=== PATIENT | female | born 1975 | race Caucasian/White ===

== ENCOUNTER 2024-02-02 16:34 | Inpatient (IN) | payer SELFPAY ==
--- NOTE | 2024-02-02 18:05 | RAD REPORT ---
EXAMINATION: US Abdomen Exam Limited CLINICAL HISTORY: [facility] MAIN Y ABD PAIN Bed Name: [id number] COMPARISON: None. TECHNIQUE: Limited upper abdominal grayscale and color flow sonographic images. FINDINGS: Gallbladder: Small volume layering gallbladder sludge near the neck. No significant wall thickening. Reportedly positive sonographic Raman's sign. No echogenic calculi. No pericholecystic fluid. Bile ducts: No intrahepatic or extrahepatic biliary dilatation. Common bile duct measures mm. Liver: Visualized portions of the liver demonstrate normal echogenicity with no suspicious findings. Fluid: No ascites. IMPRESSION: Gallbladder sludge and reported positive sonographic Raman's sign. Please correlate clinically for e vidence of acute cholecystitis.
[2024-02-02 19:23] LABS: Absolute Basophils 0.1 K/uL (0-0.5); Absolute Eosinophils 0.1 K/uL (0-0.5); Absolute Lymphocytes (CBC) 1.5 K/uL (0.7-4.9); Absolute Monocytes 0.4 K/uL (0.1-1.3); Absolute Neutrophil 8.8 K/uL (1.8-8.0); Basophils % 0.5 % (0-1.3); Eosinophils % 0.8 % (0-4.4); Hematocrit 43.4 % (36.0-45.0); Hemoglobin 14.2 g/dL (12.0-15.0); Lymphocytes % 13.9 % (15.3-44.8); MCH 29.5 pg (27.0-35.0); MCHC 32.7 g/dL (32.0-36.0); MCV 90.4 fL (80-100); MPV 7.4 fL (7.6-11.3); Monocytes % 3.7 % (3.3-12.3); Neutrophils % 81.1 % (41.7-73.7); Platelets 336 thou/uL (152-406); Red Cell Distribution Width 14.4 % (12.1-15.2)
[2024-02-02 19:26] LABS: Specific Gravity 1.024 (1.005-1.030)
[2024-02-02 19:39] LABS: Albumin 4.3 g/dL (3.4-5.0); Anion Gap 8.1 mEq/L (5.0-15.0); Bilirubin Total 0.4 mg/dL (0.2-1.0); Globulin 4.5 g/dL (2.3-3.5); Potassium 4.1 mEq/L (3.5-5.1); Protein, Total 8.8 g/dL (6.4-8.2)
[2024-02-02] MEDS ORDERED: NA CHLORIDE 0.9% 1,000 ML ONE ×2 (19:45→21:43)
[2024-02-02] MEDS ORDERED: KETOROLAC 30 MG/ML INJ ONE ×2 (19:45→23:54)
[2024-02-02] MEDS ORDERED: ONDANSETRON 4 MG/2 ML VIAL ONE (19:45)
[2024-02-02] MEDS ORDERED: FAMOTIDINE 20 MG/2 ML VIAL IV ONE (19:45)
--- NOTE | 2024-02-02 20:52 | RAD REPORT ---
EXAMINATION: CT Abdomen Pelvis W Contrast CLINICAL INDICATION: Female, 48 years old. ABD PAIN TECHNIQUE: CT abdomen and pelvis was performed, after the administration of IV contrast[facility]. Axial, sagittal and coronal reconstructions were obtained. One or more of the following dose reduction techniques were used: Automated exposure control, adjustment of the mA and k V according to patient size, and iterative reconstruction. Unless otherwise specified, incidental findings do not require dedicated imaging follow-up. COMPARISON: No prior exam. FINDINGS: LOWER CHEST: The visualized lung bases are clear. LIVER: Normal in size and contour. No focal lesion. BILIARY SYSTEM: No suspicious abnormalities. SPLEEN: Normal size. No focal lesion. PANCREAS: No mass, ductal dilation, or michelle-pancreatic fluid. ADRENALS: Normal; no mass. KIDNEYS: Normal size and contour. No hydronephrosis. URINARY BLADDER: Decompressed limiting evaluation.. GASTROINTESTINAL TRACT: No evidence of free air, or fluid collections. Marked distention of mid to di stal small bowel with fluid opacification, with abrupt transition point to nondistended small bowel in the right upper pelvis, series 201 image 61 and series 202 images 33-36 among others. The more pro ximal segment of moderately distended small bowel follows focal caliber attenuation, best appreciated on series 2 to image 35, which may relate to peristalsis, a small effusion, or a focal st ricture. Mild free pelvic fluid. Moderate stool burden in the distal colon and rectum APPENDIX: Normal appendix. LYMPH NODES: No lymphadenopathy. MUSCULOSKELETAL: No acute or suspicious osseous abnormality. ADDITIONAL FINDINGS: Retroverted uterus.. IMPRESSION: Findings suggesting high-grade small bowel obstruction with focal transition point in the right upper pelvis. Mild free pelvic ascites.
--- NOTE | 2024-02-02 21:37 | ER ---
Nurse's Notes [facility] Name: Steffany Arreola Age: 48 yrs Sex: Female : 1975 Arrival Date: 02/02/2024 Time: 16:34 Bed 28 Private MD: Diagnosis: Other cholelithiasis without obstruction;Other intestinal obstruction Presentation: 02/01 17:29 Chief complaint: Patient states: sudden onset of upper abdominal pain since 1200 today, aa5 reports nausea. Denies vomiting/diarrhea. Coronavirus screen: At this time, the client does not indicate any symptoms associated with coronavirus-19. Ebola Screen: Patient denies travel to an Ebola-affected area in the 21 days before illness onset. Initial Sepsis Screen: Does the patient meet any 2 criteria? No. Patient's initial sepsis screen is negative. Does the patient have a suspected source of infection? No. Patient's initial sepsis screen is negative. Risk Assessment: Do you want to hurt yourself or someone else? Patient reports no desire to harm self or others. Onset of symptoms was February 02, 2024. 17:29 Acuity: JAMSHID 3 aa5 17:29 Method Of Arrival: Ambulatory aa5 Triage Assessment: 21:21 General: Appears in no apparent distress. uncomfortable, slender, well groomed, well vc1 developed, Behavior is cooperative, appropriate for age. Pain: Complains of pain in epigastric area Pain does not radiate. EENT: No deficits noted. No signs and/or symptoms were reported regarding the EENT system. Neuro: Level of Consciousness is awake, alert, obeys commands, Oriented to person, place, time, situation, Appropriate for age. Cardiovascular: Capillary refill < 3 seconds Patient's skin is warm and dry. Respiratory: Airway is patent Respiratory effort is even, unlabored, Respiratory pattern is regular, symmetrical. GI: Abdomen is round non-distended, Reports epigastric pain, nausea. : No deficits noted. No signs and/or symptoms were reported regarding the genitourinary system. Derm: Skin is intact, is healthy with good turgor, Skin is dry, Skin is normal, Skin temperature is. Musculoskeletal: Circulation, motion, and sensation intact. Range of motion: intact in all extremities. Historical: - Allergies: 17:27 Bactrim; aa5 - PMHx: 17:27 None; aa5 - PSHx: 17:27 tubal ligation x 2; Tonsillectomy; aa5 17:28 chest tube; aa5 - Immunization history:: Adult Immunizations unknown. - Infectious Disease History:: Denies. Screenin:[address] [facility] ED Fall Risk Assessment (Adult) History of falling in the last 3 months, vc1 including since admission No falls in past 3 months (0 pts) Confusion or Disorientation No (0 pts) Intoxicated or Sedated No (0 pts) Impaired Gait No (0 pts) Mobility Assist Device Used No (0 pt) Altered Elimination No (0 pt) Score/Fall Risk Level 0 - 2 = Low Risk Oriented to surroundings, Maintained a safe environment, Educated pt \T\ family on fall prevention, incl call for assistance when getting out of bed. Abuse screen: Denies threats or abuse. Nutritional screening: No deficits noted. Tuberculosis screening: No symptoms or risk factors identified. Assessment: 21:34 Reassessment: Patient appears in no apparent distress at this time. No changes from vc1 previously documented assessment. Patient and/or family updated on plan of care and expected duration. Pain level reassessed. Patient is alert, oriented x 3, equal unlabored respirations, skin warm/dry/pink. Vital Signs: 17:29 BP 116 / 80; Pulse 77; Resp 18 S; Temp 98.7(O); Pulse Ox 98% on R/A; Weight 77.11 kg aa5 (R); Height 5 ft. 9 in. (R); 21:37 BP 106 / 59; Pulse 69; Resp 15; Pulse Ox 98% ; vc1 17:29 Body Mass Index 25.10 (77.11 kg, 175.26 cm) aa5 ED Course: 16:57 Patient arrived in ED. mg5 16:59 Galen Pugh PA is PHCP. cp 16:59 Matheus Hull MD is Attending Physician. cp 17:27 Arm band placed on. aa5 17:30 Triage completed. aa5 17:58 US Abdomen Limited: gallbladder In Process Unspecified. EDMS 19:20 CBC with Diff Sent. af3 19:20 CMP Sent. af3 19:20 Lipase Sent. af3 19:20 Test, Urine Sent. af3 19:20 Inserted saline lock: 20 gauge in left antecubital area, using aseptic technique. Blood af3 collected. Flushed with 10 mL NS. 20:04 Madisyn Liu, BASHIR is Primary Nurse. vc1 20:40 CT Abd/Pelvis - IV Contrast Only In Process Unspecified. EDMS 21:20 No provider procedures requiring assistance completed. Patient admitted, IV remains in vc1 place. 21:34 Patient has correct armband on for positive identification. Bed in low position. Call vc1 light in reach. pt refused gown. Pulse ox on. NIBP on. 21:35 Hill Hurtado MD is Hospitalizing Provider. cp 21:35 Provided Education on: NPO. vc1 Administered Medications: 19:55 Drug: Ketorolac IVP 15 mg IVP once Route: IVP; Site: left antecubital; vc1 21:36 Follow up: Response: No adverse reaction; Marked relief of symptoms vc1 19:55 Drug: NS 0.9% IV 1000 ml IV at 1000 ml once; to be given as a bolus over 60 minutes vc1 Route: IV; Rate: 1000 ml; Site: left antecubital; 20:55 Follow up: IV Status: Completed infusion; IV Intake: 1000ml vc1 19:56 Drug: Famotidine IVP 20 mg IVP once; dilute with 10 mL 0.9% NaCl; give over 2 minutes vc1 Route: IVP; Site: left antecubital; 21:36 Follow up: Response: No adverse reaction vc1 19:57 Drug: Ondansetron IVP 4 mg IVP once; over 2 minutes Route: IVP; Site: left antecubital; vc1 21:36 Follow up: Response: No adverse reaction vc1 21:54 Drug: NS 0.9% IV 1000 ml IV at 1000 ml once; to be given as a bolus over 60 minutes vc1 Route: IV; Rate: 1000 ml; Site: left antecubital; 21:55 Follow up: IV Status: Infusion continued upon admission vc1 22:47 Follow up: Response: No adverse reaction; IV Status: Completed infusion; IV Intake: me1 1000ml 21:55 Drug: cefOXitin IVPB 1 grams IVPB once over 30 mins; (mix in 50 mL NS) Route: IVPB; vc1 Infused Over: 30 mins; Site: left antecubital; 21:55 Follow up: IV Status: Infusion continued upon admission vc1 22:48 Follow up: Response: No adverse reaction; IV Status: Completed infusion; IV Intake: [id number] 21:55 Drug: metroNIDAZOLE IVPB 500 mg 100 ml IVPB once over 30 mins Volume: 100 ml; Route: vc1 IVPB; Infused Over: 30 mins; Site: left antecubital; 21:55 Follow up: IV Status: Infusion continued upon admission vc1 22:46 Follow up: Response: No adverse reaction; IV Status: Completed infusion; IV Intake: me1 100ml Medication: 21:20 VIS not applicable for this client. vc1 Intake: 20:55 IV: 1000ml; Total: 1000ml. vc1 22:46 IV: 100ml; Total: 1100ml. me1 22:47 IV: 1000ml; Total: 2100ml. me1 22:48 IV: 50ml; Total: 2150ml. in1 Outcome: 21:34 Admitted to ER Hold. Please see [facility] for further documentation. vc1 21:34 Condition: good 21:34 Instructed on the need for admit, 21:37 Decision to Hospitalize by Provider. cp 02/02 14:51 Admitted to OR accompanied by nurse, via stretcher, with chart, Report called to [facility] Maribel Condition: stable Instructed on the need for admit, 14:52 Patient left the ED. [facility] Signatures: Dispatcher [employer] Audra Frey, RN RN aa5 Galen Pugh PA PA cp Madisyn Liu RN RN vc1 Olga Mesa RN RN me1 Tess Rene mg5 Lorenza Fraga af3
--- NOTE | 2024-02-02 21:37 | EDPHYS ---
Physician Documentation [facility] Name: Steffany Arreola Age: 48 yrs Sex: Female : 1975 Arrival Date: 02/02/2024 Time: 16:34 Bed 28 Private MD: ED Physician Matheus Hull HPI: 02/01 17:06 This 48 yrs old Female presents to ER via Unassigned with complaints of Abdominal Pain. cp 17:06 The patient presents with abdominal pain mid to upper abdomen. Onset: The cp symptoms/episode began/occurred today. 17:06 The symptoms radiate to back. Associated signs and symptoms: Pertinent positives: cp nausea and vomiting, Pertinent negatives: blood in stools, constipation, diarrhea, dysuria, fever, active vomiting. The symptoms are described as constant. Modifying factors: the symptoms are aggravated by movement. Severity of pain: in the emergency department the pain is actually worse markedly. Historical: - Allergies: 17:27 Bactrim; aa5 - PMHx: 17:27 None; aa5 - PSHx: 17:27 tubal ligation x 2; Tonsillectomy; aa5 17:28 chest tube; aa5 - Immunization history:: Adult Immunizations unknown. - Infectious Disease History:: Denies. ROS: 17:10 Constitutional: Negative for body aches, chills, fever, cp 17:10 Eyes: Negative for injury, pain, redness, and discharge, cp 17:10 ENT: Negative for drainage from ear(s), ear pain, sore throat, difficulty swallowing, difficulty handling secretions, 17:10 Cardiovascular: Negative for chest pain, palpitations, 17:10 Respiratory: Negative for cough, shortness of breath, wheezing, 17:10 Abdomen/GI: Positive for abdominal pain, nausea and vomiting, Negative for diarrhea, constipation, 17:10 Neuro: Negative for altered mental status, dizziness, headache, syncope, weakness, 17:10 All other systems are negative, Exam: 17:35 Constitutional: The patient appears in no acute distress, alert, awake, non-toxic, well cp developed, well nourished, uncomfortable, 17:35 Head/Face: Normocephalic, atraumatic. cp 17:35 Eyes: Periorbital structures: appear normal, Conjunctiva: normal, no exudate, no injection, Sclera: no appreciated abnormality, Lids and lashes: appear normal, bilaterally, 17:35 ENT: External ear(s): are unremarkable, Nose: is normal, Mouth: Lips: moist, Oral mucosa: moist, Posterior pharynx: Airway: no evidence of obstruction, patent, 17:35 Chest/axilla: Inspection: normal, 17:35 Cardiovascular: Rate: normal, Rhythm: regular, 17:35 Respiratory: the patient does not display signs of respiratory distress, Respirations: normal, no use of accessory muscles, no retractions, labored breathing, is not present, Breath sounds: are clear throughout, no decreased breath sounds, no stridor, no wheezing, 17:35 Abdomen/GI: Inspection: abdomen appears normal, Bowel sounds: active, all quadrants, Palpation: soft, in all quadrants, severe abdominal tenderness, in the epigastric area, right upper quadrant and right lower quadrant, rebound tenderness, is not appreciated, voluntary guarding, is elicited in the epigastric area, right upper quadrant and right lower quadrant, 17:35 Back: CVA tenderness, is absent, Vital Signs: 17:29 BP 116 / 80; Pulse 77; Resp 18 S; Temp 98.7(O); Pulse Ox 98% on R/A; Weight 77.11 kg aa5 (R); Height 5 ft. 9 in. (R); 21:37 BP 106 / 59; Pulse 69; Resp 15; Pulse Ox 98% ; vc1 17:29 Body Mass Index 25.10 (77.11 kg, 175.26 cm) aa5 MDM: 17:28 Medical Screening Exam initiated cp 18:00 Differential diagnosis: appendicitis, bowel obstruction, cholecystitis, Cholelithiasis, cp non-specific abd pain, pancreatitis, Peptic Ulcer Disease, Perf. Duodenal Ulcer, Perf. Gastric Ulcer, Pyelonephritis, Ureterolithiasis, urinary tract infection. 21:45 Data reviewed: vital signs, nurses notes, lab test result(s), radiologic studies, CT cp scan, ultrasound, and as a result, I will admit patient. 21:45 Management of patient was discussed with the following: Cold Meat Cook: DR Edward, general surgery, will consult and patient admitted to hospitalist services under DR Hurtado after discussion. I considered the following discharge prescriptions or medication management in the emergency department Medications were administered in the Emergency Department. See MAY. 21:45 Counseling: I had a detailed discussion with the patient and/or guardian regarding the cp historical points, exam findings, and any diagnostic results supporting the discharge/admit diagnosis, lab results, radiology results, the need for further work-up and treatment in the hospital. 21:45 Response to treatment: the patient's symptoms have mildly improved after treatment, and cp as a result, I will admit patient. 02/01 17:07 Order name: CBC with Diff; Complete Time: 19:33 02/01 19:33 Interpretation: Normal except: MPV 7.4; ALEJANDRA% 81.1; LYM% 13.9; NEUT A 8.8. 02/01 17:07 Order name: CMP; Complete Time: 20:03 02/01 20:03 Interpretation: Normal except: GLUC 123; CA 10.3; TP 8.8; GLOB 4.5; A/G 1.0. 02/01 17:07 Order name: Lipase; Complete Time: 20:03 02/01 17:07 Order name: Test, Urine; Complete Time: 19:33 02/01 17:07 Order name: Urinalysis w/ reflexes 02/01 22:28 Order name: Urinalysis w/ reflexes EDAK 02/01 22:28 Order name: CBC with Automated Diff EDAK 02/01 22:28 Order name: CBC with Automated Diff EDAK 02/01 22:28 Order name: Comprehensive Metabolic Panel EDAK 02/01 22:28 Order name: Comprehensive Metabolic Panel EDAK 02/01 22:28 Order name: Magnesium EDAK 02/01 22:28 Order name: Magnesium EDAK 02/01 22:28 Order name: Phosphorus EDAK 02/01 22:28 Order name: Phosphorus EDAK 02/01 17:35 Order name: US Abdomen Limited: gallbladder; Complete Time: 18:25 cp 02/01 18:25 Interpretation: Report reviewed. 02/01 18:26 Order name: CT Abd/Pelvis - IV Contrast Only; Complete Time: 21:01 cp 02/01 21:01 Interpretation: Report reviewed. 02/02 11:21 Order name: RAD EDAK 02/01 22:28 Order name: CONS Physician Consult EDAK 02/01 17:07 Order name: IV Saline Lock; Complete Time: 19:20 02/01 17:07 Order name: Labs collected and sent; Complete Time: 19:20 cp 12 17:35 Order name: NPO; Complete Time: 20:04 cp Administered Medications: 19:55 Drug: Ketorolac IVP 15 mg IVP once Route: IVP; Site: left antecubital; vc1 21:36 Follow up: Response: No adverse reaction; Marked relief of symptoms vc1 19:55 Drug: NS 0.9% IV 1000 ml IV at 1000 ml once; to be given as a bolus over 60 minutes vc1 Route: IV; Rate: 1000 ml; Site: left antecubital; 20:55 Follow up: IV Status: Completed infusion; IV Intake: 1000ml vc1 19:56 Drug: Famotidine IVP 20 mg IVP once; dilute with 10 mL 0.9% NaCl; give over 2 minutes vc1 Route: IVP; Site: left antecubital; 21:36 Follow up: Response: No adverse reaction vc1 19:57 Drug: Ondansetron IVP 4 mg IVP once; over 2 minutes Route: IVP; Site: left antecubital; vc1 21:36 Follow up: Response: No adverse reaction vc1 21:54 Drug: NS 0.9% IV 1000 ml IV at 1000 ml once; to be given as a bolus over 60 minutes vc1 Route: IV; Rate: 1000 ml; Site: left antecubital; 21:55 Follow up: IV Status: Infusion continued upon admission vc1 22:47 Follow up: Response: No adverse reaction; IV Status: Completed infusion; IV Intake: me1 1000ml 21:55 Drug: cefOXitin IVPB 1 grams IVPB once over 30 mins; (mix in 50 mL NS) Route: IVPB; vc1 Infused Over: 30 mins; Site: left antecubital; 21:55 Follow up: IV Status: Infusion continued upon admission vc1 22:48 Follow up: Response: No adverse reaction; IV Status: Completed infusion; IV Intake: [id number] 21:55 Drug: metroNIDAZOLE IVPB 500 mg 100 ml IVPB once over 30 mins Volume: 100 ml; Route: vc1 IVPB; Infused Over: 30 mins; Site: left antecubital; 21:55 Follow up: IV Status: Infusion continued upon admission vc1 22:46 Follow up: Response: No adverse reaction; IV Status: Completed infusion; IV Intake: me1 100ml Disposition Summary: 02/02/24 21:37 Hospitalization Ordered Notes: Hospitalization Status: Inpatient Admission cp Provider: Hill Hurtado cp Condition: Stable cp Problem: new cp Symptoms: have improved cp Bed/Room Type: Standard cp Location: [facility] ER HOLD(02/02/24 21:53) vc1 Room Assignment: ERHOLD-(02/02/24 21:53) vc1 Diagnosis - Other cholelithiasis without obstruction cp - Other intestinal obstruction cp Forms: - Medication Reconciliation Form cp - SBAR form cp - Leadership Thank You Letter cp Addendum: 02/11/2024 10:15 I was immediately available for consultation during this patient's visit. I did not e c2 personally see the patient or discuss the patient with the ALBERTA. . Signatures: Dispatcher [employer] EDAudra Rush, RN RN aa5 Galen Pugh PA PA cp Calcote, Vanessa, RN RN vc1 Matheus Hull MD MD ec2 Olga Mesa RN me1 Corrections: (The following items were deleted from the chart) 02/01 18:26 18:26 Abdomen Pelvis W Con+CT.RAD.BRZ ordered. EDAK EDMS 21:53 21:37 Telemetry/MedSurg (Inpatient) cp vc1 21:53 21:37 cp vc1
[2024-02-02] MEDS ORDERED: NA CHLORIDE 0.9% 50 ML ONE (21:43)
[2024-02-02] MEDS ORDERED: CEFOXITIN SODIUM 1 GM/VIAL ONE (21:43)
[2024-02-02] MEDS ORDERED: METRONIDAZOLE 500mg IVPB 500 MG/100 ML BAG IV ONE (21:43)
[2024-02-02] MEDS ORDERED: ACETAMINOPHEN 650MG/RECT SUPP PR PRN (22:21)
--- NOTE | 2024-02-02 22:21 | P.HP ---
Certification for Inpatient Patient admitted to: Inpatient With expected LOS: >2 Midnights Practitioner: I am a practitioner with admitting privileges, knowledge of patient current condition, hospital course, and medical plan of care. Services: Services provided to patient in accordance with Admission requirements found in Title 42 Section 412.3 of the Code of Federal Regulations Patient History Date of Service: 02/02/24 Reason for admission: Abdominal Pain History of Present Illness: 48 yrs old Female with no significant past medical history other than milk allergy who was brought to ER with abdominal pain. Pain is located in epigastric region radiating to the right upper quadrant and diffusely. Pain is mild aching in pain. Associated with some nausea. Had a bowel movement today. Denies any abdominal distention. Patient was assessed in the ER and had a CT of the abdomen pelvis along with ultrasound of the abdomen which was consistent with possible high-grade SBO and cholelithiasis respectively and was admitted for further management. And surgery was consulted Allergies sulfamethoxazole [From Bactrim] Allergy (Verified 02/02/24 22:34) Anaphylaxis trimethoprim [From Bactrim] Allergy (Verified 02/02/24 22:34) Anaphylaxis - Past Medical/Surgical History Past Medical History: Reviewed- Non-Contributory Past Surgical History: Reviewed- Non-Contributory - Family History Family History: Reviewed- Non-Contributory - Social History Smoking Status: Never smoker Review of Systems 10-point ROS is otherwise unremarkable Physical Examination - Vital Signs Temperature: 97.2 F Blood Pressure: 98/72 Pulse: 78 Respirations: 18 Pulse Ox (%): 94 - Physical Exam General: Alert, In no apparent distress, Oriented x3 HEENT: Atraumatic, Normocephalic Neck: Supple, JVD not distended Respiratory: Clear to auscultation bilaterally, Normal air movement Cardiovascular: Normal pulses, Regular rate/rhythm, Normal S1 S2 Capillary refill: <2 Seconds Gastrointestinal: Soft and benign, Non-distended, Tenderness Musculoskeletal: No clubbing, No swelling Integumentary: No rashes, No significant lesion, No erythema Neurological: Normal speech, Normal strength at 5/5 x4 extr, Normal tone, Normal reflexes 2+, Normal affect Lymphatics: No axilla or inguinal lymphadenopathy - Studies Laboratory Data (last 24 hrs) 02/02/24 02/02/24 19:12 19:12 WBC 10.80 Hgb 14.2 Hct 43.4 Plt Count 336 Sodium 136 Potassium 4.1 BUN 11 Creatinine 0.74 Glucose 123 H Total Bilirubin 0.4 AST 18 ALT 25 Alkaline Phosphatase 58 Lipase 29 Assessment and Plan - Plan High-grade SBO N.p.o. for now Started on IV hydration Monitor closely Pain control Surgical consult CT findings noted Electrolytes monitor and replace accordingly Cholelithiasis with positive Raman sign To rule out acute cholecystitis Pain control Surgical consult Hypercalcemia IV hydration Monitor calcium levels Possible milk allergy Outpatient follow-up with GI GI/DVT prophylaxis Trace directive full code Discharge Plan: Home Plan to discharge in: 48 Hours - Advance Directives Does patient have a Living Will: No Does patient have a Durable POA for Healthcare: No - Code Status/Comfort Care Code Status: Full Code Time Spent Managing Pts Care (In Minutes): 48
[2024-02-02] MEDS ORDERED: KETOROLAC 30 MG/ML INJ IV PRN (23:47)
[2024-02-02] MEDS ORDERED: SODIUM CHLORIDE 0.9% 10ML INJ IV PRN (23:49)
[2024-02-02] MEDS ORDERED: NA CHLORIDE 0.9% 100 ML ONE (23:54)
[2024-02-02] MEDS ORDERED: D5 0.45 NS 1,000 ML IV ONE (23:55)
[2024-02-02] MEDS ORDERED: PIPERACIL/TAZO 3.375 GM VIAL IV ONE (23:55)
[2024-02-03] MEDS: KETOROLAC 30 MG/ML INJ IV PRN (00:03)
[2024-02-03] MEDS: D5 0.45 NS 1,000 ML IV SCH (00:03)
[2024-02-03] MEDS: PIPER TAZO 3.375 GM in NA CHLORIDE 0.9% 100 ML IV SCH (00:03)
[2024-02-03 05:26] LABS: Absolute Eosinophils 0.1 K/uL (0-0.5); Absolute Monocytes 0.4 K/uL (0.1-1.3); Absolute Neutrophil 3.9 K/uL (1.8-8.0); Basophils % 0.4 % (0-1.3); Eosinophils % 1.3 % (0-4.4); Hematocrit 33.3 % (36.0-45.0); Hemoglobin 11.3 g/dL (12.0-15.0); Lymphocytes % 31.7 % (15.3-44.8); MCH 30.4 pg (27.0-35.0); MCV 89.7 fL (80-100); MPV 7.3 fL (7.6-11.3); Monocytes % 5.8 % (3.3-12.3); Neutrophils % 60.8 % (41.7-73.7); Nucleated Red Blood Cells % 0.1 % (0-0); Platelets 268 thou/uL (152-406); RBC Red Blood Cell Count 3.72 M/uL (3.86-4.86); Red Cell Distribution Width 14.4 % (12.1-15.2)
[2024-02-03 05:40] LABS: Albumin/Globulin Ratio 0.9 (1.1-1.8); Anion Gap 8.7 mEq/L (5.0-15.0); Bilirubin Total 0.4 mg/dL (0.2-1.0); Globulin 3.2 g/dL (2.3-3.5); Magnesium 1.8 mg/dL (1.6-2.4); Phosphorus 2.7 mg/dL (2.5-4.9); Potassium 3.7 mEq/L (3.5-5.1); Protein, Total 6.2 g/dL (6.4-8.2)
--- NOTE | 2024-02-03 07:24 | P.PN ---
Date of Service: 02/03/24 Subjective: feeling better overall today BP low in 80s. States she typically runs low even at home states she always runs low in ~90-100s systolic when shes checks it at home felt bloated prior to admission; improving. afebrile ROS: 10 point ROS as noted above, otherwise negative Physical Exam: GEN: Alert, NAD HEENT: Normal conjunctiva, sclera anicteric, CV: Regular rate and rhythm, no edema Pulm: Nonlabored respirations on room air, clear bilaterally ABD: tender in epigastrium/periumbilical, slight distention but soft Neuro: Normal speech, normal affect Problem List: High grade small bowel obstruction Cholelithiasis Chronic Hypotension Milk protein allergy High grade small bowel obstruction Cholelithiasis presents with sudden onset upper abdominal pain associated with some nausea. No vomiting/diarrhea CT abdomen (02/01): high-grade small bowel obstruction with focal transition point in the right upper pelvis. +mild free pelvic ascites and moderate stool buren in distal colon/rectum. Abdominal u/s 02/01): gallbladder sludge and reported positive Raman's sign. xray abdomen (02/02): dilated central small bowel remains consistent with SBO. Dr. Edward, general surgeon consulted; recommending surgical intervention after reviewing imaging. NPO for now for tentative surgery continue IV fluids Continue empiric zosyn (02/02-) Protonix BID pain control Chronic Hypotension BP low in 80-90s. Patient states she typically runs low in 90s systolic even at home. Monitor BP closely hold antihypertensives for now Milk protein allergy f/u PCP/GI outpatient VTE: SCD Code: Full Dispo: Home Pending surgical recs / possible surgery Time Spent Managing Pts Care (In Minutes): 55
[2024-02-03] MEDS ORDERED: NA CHLORIDE 0.9% 100 ML ONE (07:55)
[2024-02-03] MEDS ORDERED: PANTOPRAZOLE 40 MG INJ ONE (07:55)
[2024-02-03] MEDS ORDERED: PIPERACIL/TAZO 3.375 GM VIAL IV ONE (07:55)
[2024-02-03] MEDS: PANTOPRAZOLE 40 MG INJ IVP SCH (09:00)
[2024-02-03] MEDS ORDERED: D5 0.45 NS 1,000 ML IV ONE (09:59)
[2024-02-03] MEDS ORDERED: NA CHLORIDE 0.9% 500 ML ONE (10:18)
[2024-02-03] MEDS: NA CHLORIDE 0.9% 500 ML IV ONE (10:44)
--- NOTE | 2024-02-03 11:21 | RAD REPORT ---
EXAM: 2 views of the abdomen HISTORY: Abdominal pain COMPARISON: CT yesterday FINDINGS: Dilated small bowel present centrally with one loop for example measuring 2.5 cm. Some colo edward stool and gas is noted. No air-fluid levels identified but the small bowel was fluid-filled on the prior CT. No fractures. Lung bases are clear. IMPRESSION: Dilated central small bowel remains consistent with a small bowel obstruction.
[2024-02-03] MEDS ORDERED: KETOROLAC 30 MG/ML INJ ONE ×2 (11:29→16:37)
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
[2024-02-03 12:16] LABS: Sqamous Epithelial 20-50 /HPF (None Seen); Urine Bacteria None Seen /HPF (<20); Urine Bilirubin NEGATIVE (Negative); Urine Blood Negative (Negative); Urine Clarity Turbid (Clear); Urine Color Yellow (Yellow); Urine Culture Reflex Order NOT NEEDED; Urine Glucose NEGATIVE (Negative); Urine Ketones NEGATIVE (Negative); Urine Microscopic Reflex YN ORDER UMIC; Urine Mucus 2+ /HPF (None Seen); Urine Nitrite NEGATIVE (Negative); Urine Protein 1+ (Negative); Urine Urobilinogen Normal (Normal); Urine WBC <5 /HPF (<5)
[2024-02-03 13:02] LABS: Specific Gravity > 1.030 (1.005-1.030)
[2024-02-03] MEDS: Ringers Lactate 1,000 ML IV ONE ×2 (14:50→20:28)
[2024-02-03] MEDS ORDERED: propofoL 200 MG/20 ML VIAL IV ONE (16:36)
[2024-02-03] MEDS ORDERED: FENTANYL CITR 100 MCG/2 ML ONE (16:36)
[2024-02-03] MEDS ORDERED: MIDAZOLAM HCL 2 MG/2 ML INJ ONE (16:36)
[2024-02-03] MEDS ORDERED: ROCURONIUM 50 MG/5 ML VIAL IV ONE (16:37)
[2024-02-03] MEDS ORDERED: ONDANSETRON 4 MG/2 ML VIAL ONE (16:37)
[2024-02-03] MEDS ORDERED: Phenylephrine HCl 10 MG/ML 1 ML VIAL ONE (16:37)
[2024-02-03] MEDS ORDERED: dexAMETHasone 4 MG/ML VIAL ONE (16:38)
[2024-02-03] MEDS ORDERED: LIDOCAINE 1% MPF 5 ML VIAL ONE (16:38)
[2024-02-03] MEDS: SUGAMMADEX SODIUM 200 MG/2 ML VIAL IV ONE (18:50)
--- NOTE | 2024-02-03 19:16 | P.OP ---
Date of Service: 02/03/24 Preop diagnosis: Small bowel obstruction Postop diagnosis: Same with closed-loop obstruction secondary to adhesions Procedure performed: Exploratory laparotomy and lysis of adhesions Surgeon: Nilay Edward MD Photo Technician: Valerie LUA Estimated blood loss: Minimal Specimen: None Findings: As above Anesthesia: General Complications: None Drains: None Fluids and blood products: Nonapplicable Disposition: Recovery room Operative note: Patient brought to the OR and placed in supine position. General anesthesia began. Patient prepped and draped in usual sterile fashion. 15 blade used to make a midline incision from above the umbilicus towards the pubis. Subcutaneous tissue divided and bleeding controlled with cautery. Fascia identified and divided. Peritoneal cavity entered under direct vision. Large amount of serous fluid aspirated. In the lower part of the incision on the right side there was extensive dense adhesions causing a small bowel obstruction. There was proximal dilatation and distal collapse. Care was taken to dissect this carefully with scissors and LigaSure as needed. The small bowel was freed completely with dissection. Small bowel is healthy with pink color and good motility. Entire exploratory laparotomy took place at this time. Normal stomach, duodenal sweep, jejunum, dilated proximal ileum which decompressed into the distal ileum after the lysis of adhesion. Cecum, ascending colon, transverse colon, sigmoid colon, rectum and uterus all within normal limit. No other evidence of disease identified. No evidence of bleeding or bowel injury appreciated. Liver was within normal limit. The gallbladder was within normal limit. There was no evidence of acute inflammation. All counts were correct. Midline fascia was closed with #2 nylon running suture. Subcutaneous wounds irrigated and bleeding controlled cautery. 3-0 chromic used to reapproximate subcutaneous tissue. Veronika used to close skin. Sterile dressing applied. Patient awakened and taken to recovery room in good general condition. CC:
[2024-02-03] MEDS ORDERED: MORPHINE 10 MG/ML VIAL ONE (19:21)
[2024-02-03] MEDS: HYDROMORPHONE HCL 1 MG/ML INJ ONE ×2 (19:58→20:08)
--- NOTE | 2024-02-03 20:02 | RAD REPORT ---
EXAM: XR of the abdomen HISTORY: Abdominal pain Placement of NGT/OGT. Post Insertion. COMPARISON: None FINDINGS: XR of the abdomen shows a nonspecific, nonobstructive bowel gas pattern. Surgical clips are noted in the right abdomen. Tip of the enteric tube is in the stomach.
[2024-02-03] MEDS: HYDROMORPHONE HCL 1 MG/ML INJ IV PRN (22:13)
[2024-02-04 05:50] LABS: Absolute Lymphocytes (CBC) 1.2 K/uL (0.7-4.9); Absolute Monocytes 0.4 K/uL (0.1-1.3); Absolute Neutrophil 6.3 K/uL (1.8-8.0); Basophils % 0.2 % (0-1.3); Eosinophils % 0.1 % (0-4.4); Hematocrit 33.3 % (36.0-45.0); Hemoglobin 10.9 g/dL (12.0-15.0); Lymphocytes % 14.8 % (15.3-44.8); MCH 30.1 pg (27.0-35.0); MCHC 32.8 g/dL (32.0-36.0); MCV 91.7 fL (80-100); MPV 7.5 fL (7.6-11.3); Monocytes % 5.5 % (3.3-12.3); Neutrophils % 79.4 % (41.7-73.7); Platelets 210 thou/uL (152-406); RBC Red Blood Cell Count 3.63 M/uL (3.86-4.86)
[2024-02-04 06:01] LABS: Anion Gap 6.7 mEq/L (5.0-15.0); Magnesium 1.9 mg/dL (1.6-2.4); Potassium 4.7 mEq/L (3.5-5.1)
--- NOTE | 2024-02-04 07:28 | P.PN ---
Date of Service: 02/04/24 Subjective: abdominal pain not as severe today. dealing with sore throat / cough no events overnight afebrile NGT in place ROS: 10 point ROS as noted above, otherwise negative Physical Exam: GEN: Alert, NAD HEENT: Normal conjunctiva, sclera anicteric CV: Regular rate and rhythm, no edema Pulm: Nonlabored respirations on room air, clear bilaterally ABD: mild epigastrium/periumbilical tenderness, midline ajith in place. dressing c/d/i Neuro: Normal speech, normal affect NGT to LIWS Problem List: High grade small bowel obstruction secondary to adhesions, s/p ex lap with lysis of adhesions (02/02) Cholelithiasis Chronic Hypotension Milk protein allergy High grade small bowel obstruction secondary to adhesions, s/p ex lap with lysis of adhesions (02/02) Cholelithiasis presents with sudden onset upper abdominal pain associated with some nausea. No vomiting/diarrhea CT abdomen (02/01): high-grade small bowel obstruction with focal transition point in the right upper pelvis. +mild free pelvic ascites and moderate stool buren in distal colon/rectum. Abdominal u/s 02/01): gallbladder sludge and reported positive Raman's sign. xray abdomen (02/02): dilated central small bowel remains consistent with SBO. Dr. Edward, general surgeon is following s/p ex lap with lysis of adhesions (02/02) no evidence of acute inflammation during surgery. Gallbladder within normal limits NGT to LIWS Diet per surgery Continue empiric zosyn (02/02-) Protonix BID continue IV fluids pain control PT consult ORLY malloy today Chronic Hypotension BP low in 80-100s. Patient states she typically runs low in 90s systolic even at home. Monitor BP closely hold antihypertensives for now Milk protein allergy f/u PCP/GI outpatient VTE: Lovenox Code: Full Dispo: Home Pending improvement, tolerating diet downgrade to med/surg today Time Spent Managing Pts Care (In Minutes): 55
[2024-02-04] MEDS: ENOXAPARIN 40 MG/0.4 ML SQ SCH (07:34)
[2024-02-04] MEDS: ONDANSETRON 4 MG/2 ML VIAL IV PRN (09:15)
--- NOTE | 2024-02-04 10:56 | PN ---
Date of Progress Note: 02/04/2024 Subjective: The patient is awake, alert. No complaint. Vitals stable, afebrile. Her blood pressur e is low. Her systolics between 80 and 90, which it was before surgery. She is not tachycardic. Sh e is afebrile. Her laboratory data reviewed. Her abdomen is soft. Hypoactive bowel sounds. Dressi ng is clean, dry, and intact. Assessment: Status post exploratory laparotomy and lysis of adhesions for small bowel obstruction. Recommendations: Continue NG tube. Discontinue Pedroza. Encourage incentive spirometry. Physical th erapy, IV fluids, IV antibiotics. The patient could be transferred to the floor. The patient is cli nically doing well and improving. If she does not have much NG output, we can discontinue the NG tub e later today. /MODL Voice ID: [id number] Report ID: [id number]
[2024-02-05 06:09] LABS: Absolute Eosinophils 0.1 K/uL (0-0.5); Absolute Lymphocytes (CBC) 1.1 K/uL (0.7-4.9); Absolute Monocytes 0.4 K/uL (0.1-1.3); Absolute Neutrophil 3.7 K/uL (1.8-8.0); Basophils % 0.7 % (0-1.3); Eosinophils % 1.3 % (0-4.4); Hematocrit 29.8 % (36.0-45.0); Lymphocytes % 19.9 % (15.3-44.8); MCH 30.4 pg (27.0-35.0); MCHC 33.6 g/dL (32.0-36.0); MCV 90.5 fL (80-100); MPV 7.5 fL (7.6-11.3); Monocytes % 7.8 % (3.3-12.3); Neutrophils % 70.3 % (41.7-73.7); Platelets 178 thou/uL (152-406); RBC Red Blood Cell Count 3.29 M/uL (3.86-4.86); Red Cell Distribution Width 13.9 % (12.1-15.2)
[2024-02-05 06:28] LABS: Albumin/Globulin Ratio 0.9 (1.1-1.8); Anion Gap 6.4 mEq/L (5.0-15.0); Bilirubin Total 0.7 mg/dL (0.2-1.0); Globulin 3.4 g/dL (2.3-3.5); Magnesium 1.8 mg/dL (1.6-2.4); Potassium 3.4 mEq/L (3.5-5.1); Protein, Total 6.4 g/dL (6.4-8.2)
[2024-02-05] MEDS: POTASSIUM CL SA 10 MEQ TAB PO SCH (07:27)
--- NOTE | 2024-02-05 08:53 | P.PN ---
Date of Service: 02/05/24 Subjective: woke up yesterday afternoon feeling more bloated with worsening abdominal pains doesn't feel pain medication is working as well - but she did go for a longer gap in medication overnight while asleep no BM yet but reports some minimal flatus afebrile ROS: 10 point ROS as noted above, otherwise negative Physical Exam: GEN: Alert, NAD CV: Regular rate and rhythm, no edema Pulm: Nonlabored respirations on room air, clear bilaterally ABD: mild-moderate epigastrium/periumbilical tenderness, midline ajith in place. dressing c/d/i Neuro: Normal speech, normal affect Problem List: High grade small bowel obstruction secondary to adhesions, s/p ex lap with lysis of adhesions (02/02) Cholelithiasis Chronic Hypotension Milk protein allergy High grade small bowel obstruction secondary to adhesions, s/p ex lap with lysis of adhesions (02/02) Cholelithiasis CT abdomen (02/01): high-grade small bowel obstruction with focal transition point in the right upper pelvis. Abdominal u/s 02/01): gallbladder sludge and reported positive Raman's sign. xray abdomen (02/02): dilated central small bowel remains consistent with SBO. Dr. Edward, general surgeon is following s/p ex lap with lysis of adhesions (02/02) no evidence of acute inflammation during surgery. Gallbladder within normal limits NGT and malloy dc'd 02/03. Diet per surgery - advance to clears today Continue empiric zosyn (02/02-) Protonix BID continue IV fluids pain control - switch dilaudid to morphine 02/04 at similar strength, if tolerating clears, add norco PT consult Chronic Hypotension BP low in 80-100s. Patient states she typically runs low in 90s systolic even at home. Monitor BP closely Milk protein allergy chronic, stable VTE: Lovenox Code: Full Dispo: Home, ~48hrs Pending better pain control, tolerating diet Time Spent Managing Pts Care (In Minutes): 55
--- NOTE | 2024-02-05 12:02 | PN ---
Date of Progress Note: 02/05/2024 Subjective: The patient is awake, alert, passing little gas, still complaining of incisional pain ho wever. Objective: Vital Signs: Stable, afebrile. Abdomen: Benign with positive bowel sounds. Dressing clean, dry and intact. Laboratory Data: Reviewed. Assessment: Status post exploratory laparotomy with lysis of adhesion. Recommendation: Clear liquid diet to start today. Continue physical therapy, ambulation, incentive spirometry as instructed. Continue current medical management. The patient is clinically doing well . We will advance diet as tolerated. Hopefully discharge in 24 to 48 hours. /MODL Voice ID: [id number] Report ID: [id number]
[2024-02-05] MEDS: MORPHINE 4 MG/ML SYR IV PRN (15:04)
[2024-02-05] MEDS ORDERED: HYDROCODONE/APAP 5/325 MG TAB PO PRN (17:55)
[2024-02-06 06:18] VITALS: BMI 25.5
[2024-02-06 06:19] LABS: Albumin 2.9 g/dL (3.4-5.0); Albumin/Globulin Ratio 0.8 (1.1-1.8); Anion Gap 6.7 mEq/L (5.0-15.0); Bilirubin Total 1.3 mg/dL (0.2-1.0); Globulin 3.5 g/dL (2.3-3.5); Magnesium 1.8 mg/dL (1.6-2.4); Potassium 3.7 mEq/L (3.5-5.1); Protein, Total 6.4 g/dL (6.4-8.2)
[2024-02-06] MEDS: POTASSIUM CL SA 10 MEQ TAB PO ONE (06:44)
[2024-02-06] MEDS: MAGNESIUM SULFATE 1 gm IVPB 1 GM/100 ML BAG IV ONE (06:44)
[2024-02-06 07:01] LABS: Hematocrit 34.3 % (36.0-45.0); MCH 29.2 pg (27.0-35.0); MCHC 32.2 g/dL (32.0-36.0); MCV 90.8 fL (80-100); MPV 7.4 fL (7.6-11.3); Platelets 208 thou/uL (152-406); RBC Red Blood Cell Count 3.78 M/uL (3.86-4.86)
--- NOTE | 2024-02-06 11:18 | P.PN ---
Date of Service: 02/06/24 Subjective: feeling better today abdominal pains improving not needing pain medication as frequently tolerating diet without issues afebrile ROS: 10 point ROS as noted above, otherwise negative Physical Exam: GEN: Alert, NAD CV: Regular rate and rhythm, no edema Pulm: Nonlabored respirations on room air, clear bilaterally ABD: minimal epigastrium/periumbilical tenderness, midline ajith in place. dressing c/d/i Neuro: Normal speech, normal affect Problem List: High grade small bowel obstruction secondary to adhesions, s/p ex lap with lysis of adhesions (02/02) Cholelithiasis Chronic Hypotension Milk protein allergy High grade small bowel obstruction secondary to adhesions, s/p ex lap with lysis of adhesions (02/02) Cholelithiasis CT abdomen (02/01): high-grade small bowel obstruction with focal transition point in the right upper pelvis. Abdominal u/s 02/01): gallbladder sludge and reported positive Raman's sign. xray abdomen (02/02): dilated central small bowel remains consistent with SBO. Dr. Edward, general surgeon is following s/p ex lap with lysis of adhesions (02/02) no evidence of acute inflammation during surgery. Gallbladder within normal limits NGT and malloy dc'd 02/03. Diet per surgery - CLD 02/04 Continue empiric zosyn (02/02-) Protonix BID continue IV fluids pain control - pain improving; not needing as frequent pain meds continue PT Chronic Hypotension BP low in 80-100s. Patient states she typically runs low in 90s systolic even at home. Monitor BP closely Milk protein allergy chronic, stable VTE: Lovenox Code: Full Dispo: Home, ~24hrs Pending better pain control, tolerating diet Time Spent Managing Pts Care (In Minutes): 55
--- NOTE | 2024-02-06 16:21 | PN ---
Date of Progress Note: 02/06/2024 Subjective: The patient is awake, alert. No complaint. Tolerating clear liquids. Objective: Vital Signs: Stable, afebrile. Abdomen: Soft, nondistended, nontender. Positive bowel sounds. Wound is clean, dry, intact. Laboratory Data: Reviewed. Assessment: Status post exploratory laparotomy and lysis of adhesions for small bowel obstruction. Recommendation: The patient is clinically doing very well. We will advance diet. Likely discharge in a.m. /MODL Voice ID: [id number] Report ID: [id number]
[2024-02-06] MEDS ORDERED: MAGNES/ALUMIN/SIMET 30ML UCUP PO PRN (20:02)
[2024-02-06] MEDS: DICYCLOMINE HCL 10 MG CAP PO PRN (20:25)
[2024-02-07] MEDS: KETOROLAC 30 MG/ML INJ IV PRN (05:49)
--- NOTE | 2024-02-07 06:43 | RAD REPORT ---
EXAM: AP view(s) of the abdomen Abdomen 1 View (KUB) HISTORY: Abdominal pain COMPARISON: 02/03/2024 FINDINGS: Nonspecific mild diffuse small bowel distention. The small bowel measures at most 3 cm though this i s magnified by radiography. Some gas is present in the colon.. No suspicious calcifications are seen. No acute osseous abnormality. Other: Midline surgical ajith. IMPRESSION: Findings remain consistent with a mild ileus.
[2024-02-07 08:27] LABS: Absolute Eosinophils 0.2 K/uL (0-0.5); Absolute Lymphocytes (CBC) 1.2 K/uL (0.7-4.9); Absolute Monocytes 0.4 K/uL (0.1-1.3); Basophils % 0.4 % (0-1.3); Eosinophils % 3.3 % (0-4.4); Hematocrit 36.2 % (36.0-45.0); Lymphocytes % 25.3 % (15.3-44.8); MCH 29.8 pg (27.0-35.0); MCHC 33.3 g/dL (32.0-36.0); MCV 89.5 fL (80-100); MPV 7.4 fL (7.6-11.3); Monocytes % 9.1 % (3.3-12.3); Neutrophils % 61.9 % (41.7-73.7); Nucleated Red Blood Cells % 0.1 % (0-0); Platelets 251 thou/uL (152-406); RBC Red Blood Cell Count 4.04 M/uL (3.86-4.86); Red Cell Distribution Width 13.7 % (12.1-15.2)
[2024-02-07 08:32] LABS: Albumin 3.1 g/dL (3.4-5.0); Albumin/Globulin Ratio 0.8 (1.1-1.8); Anion Gap 6.9 mEq/L (5.0-15.0); Bilirubin Total 1.6 mg/dL (0.2-1.0); Globulin 3.9 g/dL (2.3-3.5); Magnesium 2.1 mg/dL (1.6-2.4); Potassium 3.9 mEq/L (3.5-5.1)
--- NOTE | 2024-02-07 09:36 | P.PN ---
Date of Service: 02/07/24 Subjective: reports some increase abdominal pains overnight ambulating around the floor feels toradol helped last night thinks she might've had 1 BM yesterday. +flatus afebrile ROS: 10 point ROS as noted above, otherwise negative Physical Exam: GEN: Alert, NAD CV: Regular rate and rhythm, no edema Pulm: Nonlabored respirations on room air, clear bilaterally ABD: minimal epigastrium/periumbilical tenderness, midline ajith in place. dressing c/d/i Neuro: Normal speech, normal affect Problem List: High grade small bowel obstruction secondary to adhesions, s/p ex lap with lysis of adhesions (02/02) Cholelithiasis Chronic Hypotension Milk protein allergy High grade small bowel obstruction secondary to adhesions, s/p ex lap with lysis of adhesions (02/02) Cholelithiasis CT abdomen (02/01): high-grade small bowel obstruction with focal transition point in the right upper pelvis. Abdominal u/s 02/01): gallbladder sludge and reported positive Raman's sign. xray abdomen (02/02): dilated central small bowel remains consistent with SBO. Dr. Edward, general surgeon is following s/p ex lap with lysis of adhesions (02/02) no evidence of acute inflammation during surgery. Gallbladder within normal limits NGT and malloy dc'd 02/03. Continue empiric zosyn (02/02-) Protonix BID pain control continue PT KUB (02/06) ordered overnight given increased abdominal pain noted mild ileus back down full liquid diet 02/06 given ileus feeling better this morning Chronic Hypotension BP low in 80-100s. Patient states she typically runs low in 90s systolic even at home. Monitor BP closely Milk protein allergy chronic, stable VTE: Lovenox Code: Full Dispo: Home, ~24hrs Pending better pain control, tolerating diet Time Spent Managing Pts Care (In Minutes): 40
--- NOTE | 2024-02-07 10:13 | PN ---
Date of Progress Note: 02/07/2024 Subjective: The patient had 1 episode of severe pain on the left side of her abdomen, which has sinc e resolved. X-ray was done, which showed a mild ileus. There is gas in the colon, but the proximal small bowel appears a little dilated. Her vitals are stable. She is afebrile. Laboratory Data: Reviewed, essentially unremarkable. Objective: Abdomen is soft, nondistended, nontender. Assessment: Status post exploratory laparotomy, lysis of adhesion with ileus. Recommendations: We will go back to full liquid diet. Encourage ambulation. Clinically, monitor th e patient for the next 24 hours and determine tomorrow, whether she is ready for discharge or not or she has prolonged ileus. Plan of care discussed with the hospitalist. SHEREEN/MODL Voice ID: [id number] Report ID: [id number]
[2024-02-08 06:47] LABS: Anion Gap 8.3 mEq/L (5.0-15.0); Magnesium 1.9 mg/dL (1.6-2.4); Potassium 4.3 mEq/L (3.5-5.1)
[2024-02-08 08:47] VITALS: BP 130/60; TEMP 97.8
--- NOTE | 2024-02-08 09:10 | P.DS ---
Admission Date: 02/02/24 Discharge Date: 02/08/24 Disposition: ROUTINE DISCHARGE Discharge Condition: GOOD Reason for Admission: Abdominal Pain Consultations: General Surgery - Dr. Edward Brief History of Present Illness: 48YO F, PMH: milk protein allergy Patient was brought to ER with abdominal pain. Pain is located in epigastric region radiating to the right upper quadrant and diffusely. Pain is mild aching in pain. Associated with some nausea. Had a bowel movement today. Denies any abdominal distention. Patient was assessed in the ER and had a CT of the abdomen pelvis along with ultrasound of the abdomen which was consistent with possible high-grade SBO and cholelithiasis respectively and was admitted for further management. And surgery was consulted Hospital Course: Problem List: High grade small bowel obstruction secondary to adhesions, s/p ex lap with lysis of adhesions (02/02) Cholelithiasis Chronic Hypotension Milk protein allergy Physician discharge instructions: Patient presented with RUQ abdominal pain associated with nausea secondary to high grade small bowel obstruction. CT abdomen with high-grade small bowel obstruction with focal transition point in the right upper pelvis. Abdominal ultrasound noted gallbladder sludge and reported positive Raman's sign. Patient was evaluated by Dr. Edward, general surgeon, and underwent ex lap with lysis of adhesions on 02/05. She was found to have closed-loop obstruction secondary to adhesions. Gallbladder looked within normal limits during surgery without any evidence of acute inflammation. No intervention regarding gallbladder required. Patient received empiric zosyn as a precaution to cover possible infection. There was no evidence of infection/inflammation seen during surgery. She has remained afebrile without leukocytosis for several days. No further antibiotics needed. Post-operatively, patient noted to have some worsening abdominal pains 02/06 evening. Repeat KUB noted mild ileus, which improved with mild bowel rest / de- escalation of diet to full liquids. Abdominal pains significantly improved 02/07 morning. Patient ambulating and tolerating liquid diet on day of discharge. She also reports multiple bowel movement since KUB. She did report some mild abdominal cramps and indigestion which bentyl help sig nificantly. Patient was feeling better, abdominal pain improved, afebrile without leukocytosis, and was deemed stable for discharge. Advised to follow up with Dr. Edward in office in ~1 week. Call to make appointment. Recommend continuing liquid diet for next 2-3 days, can slowly ease back into soft, regular diet over the next few days as tolerable. Avoid fatty/greasy foods. Avoid foods high in fiber for now. Medications: Pepcid Dicyclomine Follow up: PCP 3-[address] Edward in office in ~1 week Please call to schedule / confirm appointments Physical Exam: GEN: Alert, NAD CV: Regular rate and rhythm, no edema Pulm: Nonlabored respirations on room air, clear bilaterally ABD: nontender, midline ajith in place. dressing c/d/i Neuro: Normal speech, normal affect Vital Signs/Physical Exam: Temp Pulse Resp BP Pulse Ox 97.8 F 93 H 14 130/60 98 02/08/24 08:00 02/08/24 08:00 02/08/24 08:00 02/08/24 08:00 02/08/24 08:00 Laboratory Data at Discharge: WBC 4.80 thou/uL (4.3-10.9) 02/07/24 07:58 Hgb 12.0 g/dL (12.0-15.0) D 02/07/24 07:58 Hct 36.2 % (36.0-45.0) 02/07/24 07:58 Plt Count 251 thou/uL (152-406) 02/07/24 07:58 Sodium 136 mEq/L (136-145) 02/08/24 06:23 Potassium 4.3 mEq/L (3.5-5.1) 02/08/24 06:23 BUN 8 mg/dL (7-18) 02/08/24 06:23 Creatinine 0.69 mg/dL (0.55-1.02) 02/08/24 06:23 Glucose 91 mg/dL (74-106) 02/08/24 06:23 Phosphorus 4.0 mg/dL (2.5-4.9) 02/04/24 05:18 Magnesium 1.9 mg/dL (1.6-2.4) 02/08/24 06:23 Total Bilirubin 1.6 mg/dL (0.2-1.0) H 02/07/24 07:58 AST 33 U/L (15-37) 02/07/24 07:58 ALT 43 U/L (13-56) 02/07/24 07:58 Alkaline Phosphatase 64 U/L (45-117) D 02/07/24 07:58 Lipase 29 U/L (13-75) 02/02/24 19:12 Home Medications: Dicyclomine [Bentyl*] 10 mg PO TID PRN 10 Days #30 cap 02/08/24 Famotidine [Pepcid] 20 mg PO DAILY 30 Days #30 tab 02/08/24 New Medications: Dicyclomine [Bentyl*] 10 mg PO TID PRN 10 Days #30 cap PRN Reason: Abdominal Cramps Famotidine [Pepcid] 20 mg PO DAILY 30 Days #30 tab Physician Discharge Instructions: Physician discharge instructions: Patient presented with RUQ abdominal pain associated with nausea secondary to high grade small bowel obstruction. CT abdomen with high-grade small bowel obstruction with focal transition point in the right upper pelvis. Abdominal ultrasound noted gallbladder sludge and reported positive Raman's sign. Patient was evaluated by Dr. Edward, general surgeon, and underwent ex lap with lysis of adhesions on 02/05. She was found to have closed-loop obstruction secondary to adhesions. Gallbladder looked within normal limits during surgery without any evidence of acute inflammation. No intervention regarding gallbladder required. Patient received empiric zosyn as a precaution to cover possible infection. There was no evidence of infection/inflammation seen during surgery. She has remained afebrile without leukocytosis for several days. No further antibiotics needed. Post-operatively, patient noted to have some worsening abdominal pains 12/ evening. Repeat KUB noted mild ileus, which improved with mild bowel rest / de- escalation of diet to full liquids. Abdominal pains significantly improved 02/07 morning. Patient ambulating and tolerating liquid diet on day of discharge. She also reports multiple bowel movement since KUB. She did report some mild abdominal cramps and indigestion which bentyl help significantly. Patient was feeling better, abdominal pain improved, afebrile without leukocytosis, and was deemed stable for discharge. Advised to follow up with Dr. Edward in office in ~1 week. Call to make appointment. Recommend continuing liquid diet for next 2-3 days, can slowly ease back into soft, regular diet over the next few days as tolerable. Avoid fatty/greasy foods. Avoid foods high in fiber for now. Medications: Pepcid Dicyclomine Follow up: PCP 3-[address] Edward in office in ~1 week Please call to schedule / confirm appointments Instructions Per Dr. Edward: May shower Keep wound clean and dry Dry gauze to wound after showering daily Incentive spirometry as instructed Resume home meds and diet Activity as tolerated no heavy lifting Follow-up my office 1 week, call for appointment Diet: Regular Activity: No lifting more than 10 lbs Followup: NONE,NONE [Primary Care Provider] - Nilay Edward MD [ACTIVE - CAN ADMIT] - 02/11/24 Time spent managing pt's care (in minutes): 45
[2024-02-08 10:22] VITALS: O2SAT 98
--- NOTE | 2024-02-08 10:27 | PN ---
Date of Progress Note: 02/08/2024 Subjective: Patient is awake, alert. Feels better. Has occasional indigestion and mild cramping. Having bowel movements. Tolerating diet. Ambulating. Pain controlled on p.o. pain medication. Objective: Vital Signs: Stable. Afebrile. Abdomen: Benign. Assessment: Status post exploratory laparotomy, lysis of adhesions with small bowel obstruction and cholelithiasis. Recommendations: Patient cleared from Surgery for discharge. Discharge instruction given. The krystyna ent will follow up with me, this week. /MODL Voice ID: [id number] Report ID: [id number]
== END 2024-02-08 11:30 | disposition home or self-care (01) | DRG 336 ==
LOC: ER 16:34 → ERHOLD 22:21 → 3RD-ICU 02-03 15:01 → 2ND 02-04 16:14
PROVIDERS: ADMIT Family Medicine; ATTEND Hospitalist
PROC: 0DN80ZZ Release Small Intestine, Open Approach (ICD-10-PCS; principal; 2024-02-03 14:45)
DX: K56.52 Intestinal adhesions [bands] with complete obstruction (principal); K91.89 Other postprocedural complications and disorders of digestive system; I95.89 Other hypotension; K80.20 Calculus of gallbladder without cholecystitis without obstruction; Z98.51 Tubal ligation status; E83.52 Hypercalcemia; Z91.011 Allergy to milk products; K56.7 Ileus, unspecified
CPT/HCPCS: 36415; 74018; 74019; 74177; 76705; 80048; 80053; 81001; 81025; 83690; 83735; 84100; 84132; 85025; 85027; 94010; 96361; 96374; 96375; 97161; 99285; J0694; J1100; J1171; J1650; J2003; J2250; J2371; J2405; J2470; J2543; J2704; J3010; J3475; J7030; J7040; J7120; J7799; Q9967

== ENCOUNTER 2024-02-11 18:32 | Inpatient (IN) | payer SELFPAY ==
[2024-02-11] MEDS ORDERED: MORPHINE 4 MG/ML SYR ONE (21:24)
[2024-02-11] MEDS ORDERED: ONDANSETRON 4 MG/2 ML VIAL ONE (21:24)
[2024-02-11 21:25] LABS: Absolute Eosinophils 0.1 K/uL (0-0.5); Absolute Lymphocytes (CBC) 0.8 K/uL (0.7-4.9); Absolute Monocytes 0.4 K/uL (0.1-1.3); Absolute Neutrophil 2.3 K/uL (1.8-8.0); Basophils % 0.7 % (0-1.3); Eosinophils % 3.1 % (0-4.4); Hematocrit 36.7 % (36.0-45.0); Hemoglobin 12.3 g/dL (12.0-15.0); Lymphocytes % 23.2 % (15.3-44.8); MCH 29.8 pg (27.0-35.0); MCHC 33.4 g/dL (32.0-36.0); MCV 89.4 fL (80-100); Monocytes % 9.7 % (3.3-12.3); Neutrophils % 63.3 % (41.7-73.7); Nucleated Red Blood Cells % 0.2 % (0-0); Platelets 301 thou/uL (152-406); RBC Red Blood Cell Count 4.11 M/uL (3.86-4.86); Red Cell Distribution Width 13.8 % (12.1-15.2)
[2024-02-11 21:27] LABS: Specific Gravity > 1.030 (1.005-1.030); Urine Bacteria None Seen /HPF (<20); Urine Bilirubin NEGATIVE (Negative); Urine Blood 1+ (Negative); Urine Clarity Extremely Turbid (Clear); Urine Color Yellow (Yellow); Urine Culture Reflex Order NOT NEEDED; Urine Glucose NEGATIVE (Negative); Urine Ketones 1+ (Negative); Urine Microscopic Reflex YN ORDER UMIC; Urine Mucus 4+ /HPF (None Seen); Urine Nitrite NEGATIVE (Negative); Urine Protein 1+ (Negative); Urine Urobilinogen Normal (Normal); Urine WBC <5 /HPF (<5); Urine Yeast (Budding) Trace /HPF (None Seen)
[2024-02-11 21:44] LABS: Albumin 3.5 g/dL (3.4-5.0); Albumin/Globulin Ratio 0.8 (1.1-1.8); Anion Gap 7.7 mEq/L (5.0-15.0); Bilirubin Total 0.4 mg/dL (0.2-1.0); Globulin 4.3 g/dL (2.3-3.5); Potassium 3.7 mEq/L (3.5-5.1); Protein, Total 7.8 g/dL (6.4-8.2)
--- NOTE | 2024-02-11 22:18 | RAD REPORT ---
EXAMINATION: CT ABDOMEN AND PELVIS WITH CONTRAST CLINICAL INDICATION: ABD PAIN TECHNIQUE: CT abdomen and pelvis was performed, after the administration of IV contrast[facility] Axial, sagittal and coronal reconstructions were obtained. One or more of the following dose reduction techniques were used: Automated exposure control, adjustment of the mA and k V according to patient size, and iterative reconstruction. Unless otherwise specified, incidental findings do not require dedicated imaging follow-up. COMPARISON: 02/02/2024 FINDINGS: LOWER CHEST: The visualized lung bases are clear. LIVER: Normal in size and contour. No focal lesion. Grossly unremarkable gallbladder. SPLEEN: Normal size. No focal lesion. PANCREAS: No mass, ductal dilation, or michelle-pancreatic fluid. ADRENALS: Normal; no mass. KIDNEYS: Normal size and contour. No hydronephrosis. GASTROINTESTINAL TRACT: Multiple moderately dilated small bowel loops are present containing air and fluid. Maximum dimension of the small bowel loop is dilated to 4.5 cm. No definite transition may be in the right lower abdomen or upper pelvis region. Mild free fluid is seen in the pelvis. APPENDIX: Appendix not visualized, but no inflammatory changes in region of appendix. LYMPH NODES: No lymphadenopathy. MUSCULOSKELETAL: No acute or suspicious osseous abnormality. ADDITIONAL FINDINGS: Trace free fluid along the right hepatic edge. IMPRESSION: Moderately severe mechanical small bowel obstruction.
--- NOTE | 2024-02-11 22:36 | RAD REPORT ---
EXAM: Right upper quadrant ultrasound. CLINICAL HISTORY: EPIGASTRIC PAIN COMPARISON: None. FINDINGS: Gallbladder: Mild gallbladder sludge without discrete stone. Bile ducts: No intrahepatic or extrahepatic biliary dilatation. Common bile duct measures 4 mm. Limited imaging of the liver shows no concerning finding. IMPRESSION: Mild gallbladder sludge without stones.
[2024-02-11] MEDS ORDERED: NA CHLORIDE 0.9% 1,000 ML ONE (22:37)
--- NOTE | 2024-02-11 23:29 | EDPHYS ---
Physician Documentation [facility] Name: Steffany Arreola Age: 48 yrs Sex: Female : 1975 Arrival Date: 02/11/2024 Time: 18:32 Bed 27 Private MD: ED Physician Matheus Hull HPI: 02/10 21:03 This 48 yrs old Female presents to ER via Ambulatory with complaints of Abdominal Pain, pm1 Vomiting. 21:03 The patient presents with abdominal pain in the upper abdomen. Onset: The pm1 symptoms/episode began/occurred yesterday. The symptoms do not radiate. Associated signs and symptoms: Pertinent positives: nausea and vomiting, Pertinent negatives: diarrhea. The symptoms are described as achy, constant. Modifying factors: The symptoms are alleviated by nothing, the symptoms are aggravated by nothing. Severity of pain: in the emergency department the pain is actually worse. The patient has been recently been admitted at [facility], was discharged earlier this week, for similar complaints. FERMENTER: 19:26 unknown, patient unsure, as periods are irregular tm6 Historical: - Allergies: 19:31 Bactrim; tm6 19:31 MILK CONTAINING PRODUCTS; tm6 - PMHx: 19:31 bowel obstruction (tubal ligation x 2); tm6 - PSHx: 19:31 chest tube; Tonsillectomy; tubal ligation x 2; tm6 - Immunization history:: Flu vaccine is not up to date. - Infectious Disease History:: Denies. - Social history:: Patient uses Smoking status: Reported history of juuling and/or vaping. ROS: 21:03 Constitutional: Negative for fever, chills, and weight loss, Cardiovascular: Negative pm1 for chest pain, palpitations, and edema, Respiratory: Negative for shortness of breath, cough, wheezing, and pleuritic chest pain, 21:03 Back: Negative for injury and pain, MS/Extremity: Negative for injury and deformity, Skin: Negative for injury, rash, and discoloration, Neuro: Negative for headache, weakness, numbness, tingling, and seizure, 21:03 Abdomen/GI: Positive for abdominal pain, nausea and vomiting, of the right upper quadrant and left upper quadrant, 21:03 All other systems are negative, Exam: 21:03 Constitutional: This is a well developed, well nourished patient who is awake, alert, pm1 and in no acute distress. Head/Face: Normocephalic, atraumatic. Cardiovascular: Regular rate and rhythm with a normal S1 and S2. No gallops, murmurs, or rubs. Normal PMI, no JVD. No pulse deficits. Respiratory: Lungs have equal breath sounds bilaterally, clear to auscultation and percussion. No rales, rhonchi or wheezes noted. No increased work of breathing, no retractions or nasal flaring. 21:03 Back: No spinal tenderness. No costovertebral tenderness. Full range of motion. Skin: Warm, dry with normal turgor. Normal color with no rashes, no lesions, and no evidence of cellulitis. MS/ Extremity: Pulses equal, no cyanosis. Neurovascular intact. Full, normal range of motion. 21:03 Abdomen/GI: Inspection: abdomen appears normal, Palpation: soft, in all quadrants, moderate abdominal tenderness, in the right upper quadrant and left upper quadrant, 21:03 Neuro: Exam negative for acute changes, Vital Signs: 19:26 BP 118 / 80; Pulse 73; Resp 19; Temp 98.9(O); Pulse Ox 100% on R/A; MAP 91 mmHg; Weight tm6 77.11 kg; Height 5 ft. 9 in. ; Pain 9/10; 21:32 BP 129 / 87; Pulse 95; Pulse Ox 98% on R/A; kj2 22:39 BP 120 / 88; Pulse 68; Resp 18; Pulse Ox 100% ; kj2 23:36 BP 122 / 81; Pulse 70; Resp 18; Pulse Ox 100% on R/A; kj2 19:26 Body Mass Index 25.10 (77.11 kg, 175.26 cm) tm6 19:26 Pain Scale: Adult tm6 MDM: 20:30 Medical Screening Exam initiated pm1 23:20 Management of patient was discussed with the following: Climatology Professor: Wagner ARANGO:Admit the pm1 patient to the hospitalist with him as consult, MRCP in the AM, Repeat LFTs in AM, IV fluids, Pain control, Cipro and flagyl antibiotics, Flat and upright abdominal x-ray in the AM. NG tube if patient with vomiting. 23:23 Data reviewed: vital signs. pm1 23:23 Counseling: I had a detailed discussion with the patient and/or guardian regarding the pm1 historical points, exam findings, and any diagnostic results supporting the discharge/admit diagnosis, lab results, radiology results, the need for further work-up and treatment in the hospital. 23:23 Management of patient was discussed with the following: Hospitalist: Radha. Will see pm1 the patient. 02/10 20:38 Order name: CBC with Diff; Complete Time: 21:33 pm1 02/10 20:38 Order name: CMP; Complete Time: 21:51 pm1 02/10 20:38 Order name: Lipase; Complete Time: 21:51 pm1 02/10 20:38 Order name: Urinalysis w/ reflexes; Complete Time: 21:33 pm1 02/11 01:10 Order name: Urinalysis w/ reflexes EDNJ 02/11 01:11 Order name: CBC with Automated Diff EDNJ 02/11 01:11 Order name: CBC with Automated Diff EDNJ 02/11 01:11 Order name: Comprehensive Metabolic Panel EDNJ 02/11 01:11 Order name: Comprehensive Metabolic Panel EDNJ 02/10 20:38 Order name: CT Abd/Pelvis - IV Contrast Only; Complete Time: 22:21 pm1 02/10 22:01 Order name: US Abdomen Limited; Complete Time: 22:41 pm1 02/11 09:47 Order name: MRI EDNJ 02/11 09:56 Order name: RAD EDNJ 02/11 14:04 Order name: RAD EDNJ 02/10 20:38 Order name: IV Saline Lock; Complete Time: 22:12 pm1 02/10 20:38 Order name: Labs collected and sent; Complete Time: 22:12 pm1 02/10 22:22 Order name: NPO; Complete Time: 22:45 pm1 Administered Medications: 21:27 Drug: morphine IVP or IV 4 mg IVP once over 4 mins Route: IVP; Infused Over: 4 mins; kj2 Site: left antecubital; 23:38 Follow up: Response: No adverse reaction kj2 21:31 Drug: Ondansetron IVP 4 mg IVP once; over 2 minutes Route: IVP; Site: left antecubital; kj2 23:38 Follow up: Response: No adverse reaction kj2 22:44 Drug: NS 0.9% IV 1000 ml IV at 1000 ml once; to be given as a bolus over 60 minutes kl Route: IV; Rate: 1000 ml; Site: left antecubital; 02/11 02:00 Follow up: IV Status: Completed infusion; IV Intake: 1000ml rg5 00:06 Drug: metroNIDAZOLE IVPB 500 mg 100 ml IVPB at 200 ml/hr once over 30 mins Volume: 100 kj2 ml; Route: IVPB; Rate: 200 ml/hr; Infused Over: 30 mins; Site: left antecubital; 00:36 Follow up: Response: No adverse reaction; IV Status: Completed infusion; IV Intake: kj2 100ml 02:27 Drug: Ciprofloxacin IVPB 400 mg 200 ml IVPB once over 60 mins Volume: 200 ml; Route: kj2 IVPB; Infused Over: 60 mins; Site: left antecubital; 03:45 Follow up: IV Status: Completed infusion; IV Intake: 200ml rg5 Disposition Summary: 02/11/24 23:29 Hospitalization Ordered Notes: Hospitalization Status: Inpatient Admission pm1 Provider: Tavares Garcia pm1 Condition: Stable(02/11/24 23:29) pm1 Problem: new(02/11/24 23:29) pm1 Symptoms: have improved(02/11/24 23:29) pm1 Bed/Room Type: Standard pm1 Location: Telemetry/MedSurg (Inpatient)(02/12/24 13:26) ap3 Room Assignment: [facility](02/12/24 13:26) ap3 Diagnosis - Cholelithiasis pm1 - Small bowel obstruction pm1 Forms: - Medication Reconciliation Form pm1 - SBAR form pm1 - Leadership Thank You Letter pm1 Addendum: 02/19/2024 07:30 I was immediately available for consultation during this patient's visit. I did not e c2 personally see the patient or discuss the patient with the ALBERTA. . Signatures: Dispatcher [employer] Kirstie Madrid RN RN Gee Baig NP MARKET RESEARCH INTERVIEWER pm1 Yris Miranda RN RN ap3 Usha Sutton rv1 Matheus Hull MD MD ec2 Sumeet Sarah RN RN tm6 Constance Rocha RN RN kj2 Shaan Harris RN rg5 Corrections: (The following items were deleted from the chart) 02/10 20:39 20:39 CBC+H.LAB.BRZ ordered. EDMS EDMS 20:39 20:39 COMPREHENSIVE METABOLIC PANEL+C.LAB.BRZ ordered. EDMS EDMS 20:39 20:39 LIPASE+C.LAB.BRZ ordered. EDMS EDMS 20:39 20:39 Urinalysis+U.LAB.BRZ ordered. EDMS EDMS 23:28 23:27 Home pm1 pm1 23:28 23:27 new pm1 pm1 23:28 23:27 have improved pm1 pm1 23:28 23:27 Stable pm1 pm1 23:28 23:27 Small bowel obstruction pm1 pm1 23:28 23:27 Cholelithiasis pm1 pm1 02/11 00:46 12 23:23 Management of patient was discussed with the following: Hospitalist: Radha. pm1 Will see the patient. pm1 02/11 00:46 02/10 23:20 Management of patient was discussed with the following: Climatology Professor: Wagner dill MD:Admit the patient to the hospitalist with him as consult, MRCP in the AM, Repeat LFTs in AM, IV fluids, Pain control, Cipro and flagyl antibiotics, Flat and upright abdominal x-ray in the AM. pm1 02/11 04:17 12 23:29 Telemetry/MedSurg (Inpatient) pm1 rv1 02/11 04:17 02/10 23:29 pm1 [facility] 02/11 13:26 04:17 [facility] ER HOLD rv1 ap3 13:26 04:17 ERHOLD- 1 ap3
--- NOTE | 2024-02-11 23:29 | ER ---
Nurse's Notes [facility] Name: Steffany Arreola Age: 48 yrs Sex: Female : 1975 Arrival Date: 02/11/2024 Time: 18:32 Bed 27 Private MD: Diagnosis: Cholelithiasis;Small bowel obstruction Presentation: 02/10 19:27 Chief complaint: Patient states: I was in the hospital last week for an obstructed tm6 bowel in the small intestine. I had scar tissue removed. I got out Friday. Starting Friday around noon I started to have a lot of pain. I was taking tylenol, but it has not been working. Pain is located in RUQ and LUQ. Pain is sharp, burning, cramping. N/V today. Coronavirus screen: Client denies travel out of the [place] in the last 14 days. Ebola Screen: Patient negative for fever greater than or equal to 101.5 degrees Fahrenheit, and additional compatible Ebola Virus Disease symptoms Patient denies exposure to infectious person. Patient denies travel to an Ebola-affected area in the 21 days before illness onset. No symptoms or risks identified at this time. Initial Sepsis Screen: Does the patient meet any 2 criteria? No. Patient's initial sepsis screen is negative. Does the patient have a suspected source of infection? No. Patient's initial sepsis screen is negative. Risk Assessment: Do you want to hurt yourself or someone else? Patient reports no desire to harm self or others. Onset of symptoms was February 10, 2024. 19:27 Method Of Arrival: Ambulatory tm6 19:27 Acuity: JAMSHID 3 tm6 Triage Assessment: 19:31 General: Appears in no apparent distress. uncomfortable, Behavior is calm, cooperative. tm6 Pain: Complains of pain in right upper quadrant and left upper quadrant Pain currently is 9 out of 10 on a pain scale. Quality of pain is described as burning, crampy, sharp, Pain began 1 day ago. EENT: No signs and/or symptoms were reported regarding the EENT system. Neuro: Level of Consciousness is awake, alert, obeys commands, Oriented to person, place, time, situation. Cardiovascular: Patient's skin is warm and dry. Respiratory: Airway is patent Respiratory effort is even, unlabored, Respiratory pattern is regular, symmetrical. GI: Abdomen is flat, non-distended, Reports upper abdominal pain, nausea, vomiting, since yesterday. : No signs and/or symptoms were reported regarding the genitourinary system. Derm: No deficits noted. No signs and/or symptoms reported regarding the dermatologic system. Musculoskeletal: No signs and/or symptoms reported regarding the musculoskeletal system. SMOOTH [employer] WORKER COMPOSITES: 19:26 unknown, patient unsure, as periods are irregular tm6 Historical: - Allergies: 19:31 Bactrim; tm6 19:31 MILK CONTAINING PRODUCTS; tm6 - PMHx: 19:31 bowel obstruction (tubal ligation x 2); tm6 - PSHx: 19:31 chest tube; Tonsillectomy; tubal ligation x 2; tm6 - Immunization history:: Flu vaccine is not up to date. - Infectious Disease History:: Denies. - Social history:: Patient uses Smoking status: Reported history of juuling and/or vaping. Screenin:00 [facility] ED Fall Risk Assessment (Adult) History of falling in the last 3 months, kj2 including since admission No falls in past 3 months (0 pts) Confusion or Disorientation No (0 pts) Intoxicated or Sedated No (0 pts) Impaired Gait No (0 pts) Mobility Assist Device Used No (0 pt) Altered Elimination No (0 pt) Score/Fall Risk Level 0 - 2 = Low Risk Maintained a safe environment, Hourly rounding (assess needs \T\ fall precautionary measures) done. Abuse screen: Denies threats or abuse. Denies injuries from another. Nutritional screening: No deficits noted. Tuberculosis screening: No symptoms or risk factors identified. Assessment: 21:00 General: Appears in no apparent distress. uncomfortable, Behavior is calm, cooperative. kj2 Pain: Complains of pain in abdomen and left upper quadrant and right upper quadrant. Neuro: Level of Consciousness is awake, alert, obeys commands, Oriented to person, place, time, situation. Cardiovascular: Patient's skin is warm and dry. Respiratory: Airway is patent Respiratory effort is unlabored. GI: Reports lower abdominal pain, upper abdominal pain, Pain is 8 out of 10 on a pain scale. : No signs and/or symptoms were reported regarding the genitourinary system. 21:32 Reassessment: Patient appears in no apparent distress at this time. Patient and/or kj2 family updated on plan of care and expected duration. Pain level reassessed. Patient is alert, oriented x 3, equal unlabored respirations, skin warm/dry/pink. 22:39 Reassessment: Patient appears in no apparent distress at this time. Patient and/or kj2 family updated on plan of care and expected duration. Pain level reassessed. Patient is alert, oriented x 3, equal unlabored respirations, skin warm/dry/pink. 23:36 Reassessment: Patient appears in no apparent distress at this time. Patient and/or kj2 family updated on plan of care and expected duration. Pain level reassessed. Patient is alert, oriented x 3, equal unlabored respirations, skin warm/dry/pink. Vital Signs: 19:26 BP 118 / 80; Pulse 73; Resp 19; Temp 98.9(O); Pulse Ox 100% on R/A; MAP 91 mmHg; Weight tm6 77.11 kg; Height 5 ft. 9 in. ; Pain 9/10; 21:32 BP 129 / 87; Pulse 95; Pulse Ox 98% on R/A; kj2 22:39 BP 120 / 88; Pulse 68; Resp 18; Pulse Ox 100% ; kj2 23:36 BP 122 / 81; Pulse 70; Resp 18; Pulse Ox 100% on R/A; kj2 19:26 Body Mass Index 25.10 (77.11 kg, 175.26 cm) tm6 19:26 Pain Scale: Adult tm6 ED Course: 18:38 Patient arrived in ED. sj2 19:31 Triage completed. tm6 19:31 Arm band placed on left wrist. tm6 19:59 Gee Dlil NP is PHCP. pm1 19:59 Matheus Hull MD is Attending Physician. pm1 20:46 Constance Rocha, BASHIR is Primary Nurse. kj2 21:00 Patient has correct armband on for positive identification. Bed in low position. Call kj2 light in reach. Provided Education on: call light. 21:10 Inserted saline lock: 20 gauge in left antecubital area, using aseptic technique. Blood kj2 collected. Flushed with 10 mL NS. 22:09 CT Abd/Pelvis - IV Contrast Only In Process Unspecified. EDMS 22:32 US Abdomen Limited In Process Unspecified. EDMS 23:28 Tavares Garcia MD is Hospitalizing Provider. pm1 02/11 04:08 Patient admitted, IV remains in place. No redness/swelling at site. Pressure dressing rg5 applied. Administered Medications: 02/10 21:27 Drug: morphine IVP or IV 4 mg IVP once over 4 mins Route: IVP; Infused Over: 4 mins; kj2 Site: left antecubital; 23:38 Follow up: Response: No adverse reaction kj2 21:31 Drug: Ondansetron IVP 4 mg IVP once; over 2 minutes Route: IVP; Site: left antecubital; kj2 23:38 Follow up: Response: No adverse reaction kj2 22:44 Drug: NS 0.9% IV 1000 ml IV at 1000 ml once; to be given as a bolus over 60 minutes kl Route: IV; Rate: 1000 ml; Site: left antecubital; 02/11 02:00 Follow up: IV Status: Completed infusion; IV Intake: 1000ml rg5 00:06 Drug: metroNIDAZOLE IVPB 500 mg 100 ml IVPB at 200 ml/hr once over 30 mins Volume: 100 kj2 ml; Route: IVPB; Rate: 200 ml/hr; Infused Over: 30 mins; Site: left antecubital; 00:36 Follow up: Response: No adverse reaction; IV Status: Completed infusion; IV Intake: kj2 100ml 02:27 Drug: Ciprofloxacin IVPB 400 mg 200 ml IVPB once over 60 mins Volume: 200 ml; Route: kj2 IVPB; Infused Over: 60 mins; Site: left antecubital; 03:45 Follow up: IV Status: Completed infusion; IV Intake: 200ml rg5 Medication: 02/10 22:38 VIS not applicable for this client. kj2 Intake: 02/11 00:36 IV: 100ml; Total: 100ml. kj2 02:00 IV: 1000ml; Total: 1100ml. rg5 03:45 IV: 200ml; Total: 1300ml. rg5 Outcome: 02/10 23:27 Discharge ordered by . pm1 23:29 Decision to Hospitalize by Provider. pm1 02/11 04:08 Admitted to ER Hold. Please see [facility] for further documentation. rg5 Condition: stable Instructed on the need for admit, 14:46 Patient left the ED. rs5 Signatures: Dispatcher [employer] EDKirstie Rouse, RN RN kl Gee Dill, JEWELRY FACER JEWELRY FACER pm1 Easton Bowen, RN RN rs5 Sumeet Sarah, RN RN tm6 Shaan Harris, RN RN rg5 Constance Rocha, RN RN kj2 Jack Saenz 2
[2024-02-11] MEDS ORDERED: CIPROFLOXACIN 400mg IV 400 MG/200 ML BAG IV ONE (23:59)
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
[2024-02-12] MEDS: NA CHLORIDE 0.9% 1,000 ML IV SCH (02:00)
[2024-02-12] MEDS ORDERED: ONDANSETRON 4 MG/2 ML VIAL IV PRN (03:24)
[2024-02-12 04:27] VITALS: BMI 25.1
[2024-02-12] MEDS ORDERED: NA CHLORIDE 0.9% 1,000 ML ONE (04:31)
[2024-02-12] MEDS ORDERED: METRONIDAZOLE 500mg IVPB 500 MG/100 ML BAG IV ONE ×2 (08:09)
[2024-02-12] MEDS ORDERED: CIPROFLOXACIN 400mg IV 400 MG/200 ML BAG IV ONE (08:09)
[2024-02-12] MEDS ORDERED: KETOROLAC 30 MG/ML INJ ONE (08:28)
[2024-02-12] MEDS: LORazepam 2 MG/ML VIAL IV ONE (08:52)
[2024-02-12] MEDS ORDERED: LORazepam 2 MG/ML VIAL ONE (08:56)
[2024-02-12] MEDS: CIPROFLOXACIN 400mg IV 400 MG/200 ML BAG IV SCH (09:00)
[2024-02-12] MEDS: METRONIDAZOLE 500mg IVPB 500 MG/100 ML BAG IV SCH (09:00)
[2024-02-12] MEDS: KETOROLAC 30 MG/ML INJ IV ONE (09:00)
--- NOTE | 2024-02-12 09:47 | RAD REPORT ---
EXAMINATION: MR CHOLANGIOGRAM CLINICAL INDICATION: Female, 48 years old. [facility] MA[facility] N pancreatitis, abdominal pain TECHNIQUE: Multiplanar, multisequence MR imaging of the abdomen without intravenous contrast, and wit h specific attention to the biliary system. Unless otherwise specified, incidental findings do not require dedicated imaging follow-up. 3D MIP reconstruction performed. COMPARISON: Abdomen ultrasound 02/11/2024 FINDINGS: GALLBLADDER: No stones, wall thickening, or pericholecystic fluid. BILE DUCTS: No biliary ductal dilatation. Common bile duct measures 4 mm in caliber within normal santana its. LIVER: Normal in size, contour, and signal without evidence of fatty infiltration or iron deposition. No focal lesion. PANCREAS: Normal signal. No mass, ductal dilation, or michelle-pancreatic fluid. SPLEEN: Normal size. No focal lesion. ADRENALS: Normal; no mass. KIDNEYS: Normal size and contour. No hydronephrosis. LYMPH NODES: No lymphadenopathy. ADDITIONAL FINDINGS: Diffuse small bowel distention with air-fluid levels, better evaluated on abdomi nal series of the same day. Small-volume free ascites. IMPRESSION: No MRI evidence of gallbladder disease or biliary ductal dilation. Diffuse small bowel distention with air-fluid levels, suggestive of known ileus. Small volume free ascites.
--- NOTE | 2024-02-12 09:56 | RAD REPORT ---
EXAM: XR Abdomen W Erect HISTORY: [facility] Small bowel obstruction COMPARISON: CT abdomen and pelvis 02/11/2024 FINDINGS: Single view of the abdomen shows diffuse small bowel dilation in the mid abdomen to left fl ank, with small bowel caliber measuring up to 4.8 cm, appears stable in degree compared to the prior CT allowing for differences in technique. No suspicious calcifications are seen. The bones a re unremarkable. IMPRESSION: Small bowel dilation as above, suggesting persistent ileus.
--- NOTE | 2024-02-12 14:03 | RAD REPORT ---
EXAMINATION: Small bowel series CLINICAL INDICATION: Female, 48 years old. Small bowel obstruction COMPARISON: No prior exam. 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 Gastrografin was utilized. There is filling of the stomach and proximal small bowel loops with signif icantly delayed transit through the small bowel.. No fluoroscopy was performed. Total images acquired:7 IMPRESSION: Moderately severe mechanical small bowel obstruction.
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
--- NOTE | 2024-02-12 17:33 | P.PN ---
Date of Service: 02/12/24 Patient seen and examined. She is complaining of abdominal pain. She denies any flatus. No vomiting since admission. Small bowel obstruction versus ileus. Small bowel series results reviewed with Dr. Edward. Continue conservative management with antibiotics. Insert NGT if patient vomits. Repeat KUB in a.m. to assess Gastrografin transit. Analgesics as needed. Monitor BMP and CBC. Serial abdominal examination. Elevated LFTs-unknown etiology. Continue to monitor LFTs.
[2024-02-12] MEDS: HYDROMORPHONE HCL 1 MG/ML INJ IV PRN (17:42)
[2024-02-12] MEDS: ACETAMINOPHEN 650MG/RECT SUPP PR PRN (21:20)
[2024-02-12] MEDS: PHENOL 1.4% ORAL SPRAY 180ML MM PRN (22:50)
[2024-02-12] MEDS: Meropenem 500 MG in NA CHLORIDE 0.9% 100 ML IV SCH (22:52)
[2024-02-13 04:49] LABS: ALT/SGPT 259 U/L (13-56); AST/SGOT 174 U/L (15-37); Albumin 2.8 g/dL (3.4-5.0); Albumin/Globulin Ratio 0.8 (1.1-1.8); Alkaline Phosphatase 68 U/L (45-117); Anion Gap 9.4 mEq/L (5.0-15.0); BUN Blood Urea Nitrogen 6 mg/dL (7-18); Bicarbonate 22 mEq/L (21-32); Bilirubin Total 0.3 mg/dL (0.2-1.0); Globulin 3.6 g/dL (2.3-3.5); Glomerular Filtration Rate 115 ml/min (=/>90); Glucose Level 82 mg/dL (74-106); Lipase 119 U/L (13-75); Magnesium 1.6 mg/dL (1.6-2.4); Phosphorus 2.7 mg/dL (2.5-4.9); Potassium 3.4 mEq/L (3.5-5.1); Protein, Total 6.4 g/dL (6.4-8.2); Sodium Level 137 mEq/L (136-145)
[2024-02-13 04:52] LABS: Bilirubin Direct < 0.2 mg/dL (0-0.2); Bilirubin Indirect, Calculated 0.1 mg/dL (0.2-0.8)
[2024-02-13 05:27] LABS: Absolute Lymphocytes (CBC) 0.8 K/uL (0.7-4.9); Absolute Monocytes 0.2 K/uL (0.1-1.3); Absolute Neutrophil 0.9 K/uL (1.8-8.0); Basophils % 0.6 % (0-1.3); Eosinophils % 1.9 % (0-4.4); Hematocrit 31.8 % (36.0-45.0); Hemoglobin 10.3 g/dL (12.0-15.0); Lymphocytes % 41.2 % (15.3-44.8); MCH 29.6 pg (27.0-35.0); MCHC 32.5 g/dL (32.0-36.0); MCV 91.2 fL (80-100); MPV 7.2 fL (7.6-11.3); Monocytes % 11.3 % (3.3-12.3); Platelets 202 thou/uL (152-406); RBC Red Blood Cell Count 3.49 M/uL (3.86-4.86); Red Cell Distribution Width 13.8 % (12.1-15.2)
--- NOTE | 2024-02-13 07:42 | RAD REPORT ---
Exam:Abdomen W Erect Clinical history: Abdominal pain FINDINGS: Moderately dilated loops of small bowel have mildly enlarged since February 12, 2024. Air is present within portions of the colon. No free air is noted. These findings could represent an adynamic ileus or small bowel obstruction.
[2024-02-13] MEDS: ACETAMINOPHEN 160 MG/5 ML UCUP PO PRN (08:26)
[2024-02-13 08:31] LABS: SARS-CoV-2 Antigen CONTROL BLUE LINE VIS/BG OK; SARS-CoV-2 Antigen Rapid Res Negative (Negative)
--- NOTE | 2024-02-13 08:52 | PN ---
Date of Progress Note: 02/13/2024 Subjective: The patient is awake, alert, complaining of overall body aches. The patient spiked a te mperature last night of 102.6, this morning was 39.7. Flu and cultures are pending. The patient had 2 loose bowel movements. Abdominal x-ray was reviewed, showed progression of the contrast into the colon; however, the small bowel remains dilated. Objective: Her vitals are stable. Otherwise, abdomen is soft, slightly distended. Hypoactive bowel sounds, but no peritonitis. Minimal tenderness. No rigidity, no rebound, no guarding. Assessment: Partial small bowel obstruction versus adynamic ileus. Recommendations: Continue n.p.o., IV antibiotics, IV fluids, serial abdominal exam. We will repeat the x-rays in the morning. Spoke with Dr. Craig. We will proceed with midline and TPN as the patie nt probably will be slow to progress given her clinical condition. Her laboratory data was reviewed and the patient was counseled on the importance of cessation of alcohol as her liver function tests a re elevated and she has neutropenia indicative of possible liver damage. /MODL Voice ID: [id number] Report ID: [id number]
[2024-02-13] MEDS: Meropenem 500 MG in NA CHLORIDE 0.9% 100 ML IV SCH (10:00)
--- NOTE | 2024-02-13 10:16 | P.PN ---
Date of Service: 02/13/24 Subjective Patient spiked a 102 fever overnight , denies nausea vomiting, positive cough and sore throat, positive BM x 3 described as diarrhea Review of Systems 10-point ROS is otherwise unremarkable Gastrointestinal: Nausea, Vomiting, Abdominal Pain Physical Examination - Physical Exam General: Alert, Oriented x3, febrile at 101 HEENT: Atraumatic, Normocephalic Neck: Supple Respiratory: Clear to auscultation bilaterally, Normal air movement Cardiovascular: Normal pulses, Regular rate/rhythm, Normal S1 S2 Gastrointestinal: No masses, Tenderness, abdominal binder in place, ajith dry and intact without redness Musculoskeletal: No clubbing, No swelling Integumentary: No rashes Neurological: Normal speech - Studies Laboratory Data (last 24 hrs) 02/11/24 02/11/24 20:55 20:55 WBC 3.70 L Hgb 12.3 Hct 36.7 Plt Count 301 Sodium 138 Potassium 3.7 BUN 9 Creatinine 0.67 Glucose 94 Total Bilirubin 0.4 AST 418 H ALT 387 H Alkaline Phosphatase 93 Lipase 111 H Assessment and Plan - Problems (Diagnosis) (1) SBO (small bowel obstruction) Current Visit: Yes Status: Acute (2) Pancreatitis Current Visit: Yes Status: Acute (3) Nausea & vomiting Current Visit: Yes Status: Acute (4) Influenza A, causing neutropenia Current Visit: Yes Status: Acute Abdominal pain SBO-resolving Pancreatitis (from 111 to 119) Transaminitis (decreasing) abnormal abdominal US History of multiple abdominal surgeries Plan: 1. admit to med surg 2. npo, ivf, prn zofran 3. continue cipro and flagyl 4. repeat labs 5. Dr. Edward following 6. MRCP negative Influenza A +/- Tamiflu Patient currently n.p.o. Treatment may cause nausea which would confuse clinical picture Treat symptoms for now DVT:lovenox Code:full - Advance Directives Does patient have a Living Will: No Does patient have a Durable POA for Healthcare: No
--- NOTE | 2024-02-13 11:38 | P.PN ---
Subjective Patient spiked a 102 fever overnight , denies nausea vomiting, positive cough and sore throat, positive BM x 3 described as diarrhea 02/13/24 @ 1115 + influenza A- discussed with Dr. Edward - will start Tamiflu, removed every other staple, pt tolerated well Review of Systems 10-point ROS is otherwise unremarkable Gastrointestinal: Nausea, Vomiting, Abdominal Pain Physical Examination - Physical Exam General: Alert, Oriented x3, febrile at 101 HEENT: Atraumatic, Normocephalic Neck: Supple Respiratory: Clear to auscultation bilaterally, Normal air movement Cardiovascular: Normal pulses, Regular rate/rhythm, Normal S1 S2 Gastrointestinal: No masses, Tenderness, abdominal binder in place, ajith dry and intact without redness Musculoskeletal: No clubbing, No swelling Integumentary: No rashes Neurological: Normal speech - Studies Laboratory Data (last 24 hrs) 02/11/24 02/11/24 20:55 20:55 WBC 3.70 L Hgb 12.3 Hct 36.7 Plt Count 301 Sodium 138 Potassium 3.7 BUN 9 Creatinine 0.67 Glucose 94 Total Bilirubin 0.4 AST 418 H ALT 387 H Alkaline Phosphatase 93 Lipase 111 H Assessment and Plan - Problems (Diagnosis) (1) SBO (small bowel obstruction) Current Visit: Yes Status: Acute (2) Pancreatitis Current Visit: Yes Status: Acute (3) Nausea & vomiting Current Visit: Yes Status: Acute (4) Influenza A, causing neutropenia Current Visit: Yes Status: Acute Abdominal pain SBO-resolving Pancreatitis (from 111 to 119) Transaminitis (decreasing) abnormal abdominal US History of multiple abdominal surgeries Plan: 1. admit to med surg 2. npo, ivf, prn zofran 3. continue cipro and flagyl 4. repeat labs 5. Dr. Edward following 6. MRCP negative Influenza A +/- Tamiflu Patient currently n.p.o. Treatment may cause nausea which would confuse clinical picture Treat symptoms for now DVT:lovenox Code:full - Advance Directives Does patient have a Living Will: No Does patient have a Durable POA for Healthcare: No <Pinky Amos - Last Filed: 02/13/24 11:35> Patient seen and examined. Plan of care discussed with Ms. Amos. Partial small bowel obstruction versus ileus. Influenza A Patient had low-grade fever likely secondary to influenza A.' General Surgery Dr. Edward is following and medical management recommended. Continue antibiotics Analgesics as needed Midline for PPN. Serial abdominal examination Serial KUB Optimize electrolytes. <cesar lopez - Last Filed: 02/15/24 16:26>
[2024-02-13] MEDS: OSELTAMIVIR 75 MG CAP PO SCH (12:15)
[2024-02-13] MEDS: Meropenem 1,000 MG in NA CHLORIDE 0.9% 100 ML IV SCH (16:26)
[2024-02-13] MEDS: AA 4.25 %/D5W/ELECTROLYTES 2,000 ML, Lipids 20% 250 ML with MULTIVITAMINS INJ 10 ML IV SCH (17:41)
[2024-02-13] MEDS ORDERED: Meropenem 500 MG in NA CHLORIDE 0.9% 100 ML IV SCH (18:06)
[2024-02-13 21:40] VITALS: O2SAT 98
[2024-02-14 07:14] LABS: Anion Gap 8.2 mEq/L (5.0-15.0); Potassium 3.2 mEq/L (3.5-5.1)
--- NOTE | 2024-02-14 07:21 | RAD REPORT ---
EXAM: XR of the abdomen HISTORY: Abdominal pain Follow-up ileus COMPARISON: 02/13/2024 FINDINGS: XR of the abdomen shows a multiple dilated small bowel loops in the central abdomen which a ppear mildly improved since yesterday's study.. No suspicious calcifications are seen. The bones are unremarkable. Midline surgical ajith. IMPRESSION: Mild improvement in ileus or incomplete mechanical obstruction pattern since yesterday. Continued rad iographic follow-up is advised.
--- NOTE | 2024-02-14 08:07 | P.PN ---
Subjective Date of Service: 02/14/24 Chief Complaint: Abdominal pain Bedside nurse reported patient's fever resolved overnight. No high fevers reported overnight. However, the patient had two watery, nonbloody bowel movements overnight. Also, the patient was given Dilaudid for pain management. The patient complains of a staple in her abdominal region that is getting caught on gauze that is placed on top of her ajith. I informed the patient that we may possibly remove the remainder of her ajith today. She voiced understanding. <Frias,Lila Q - Last Filed: 02/14/24 09:38> Date of Service: 02/15/24 <cesar lopez - Last Filed: 02/15/24 16:19> Review of Systems Gastrointestinal: Abdominal Pain (Generalized), Diarrhea (Watery, nonbloody, 2 episodes), No Distention <Frias,Lila Q - Last Filed: 02/14/24 09:38> Physical Examination - Vital Signs Temperature: 98.3 F Blood Pressure: 142/65 Pulse: 94 Respirations: 16 Pulse Ox (%): 97 - Physical Exam General: Alert, Oriented x3 HEENT: Atraumatic, PERRLA Neck: JVD not distended Respiratory: Clear to auscultation bilaterally Cardiovascular: No edema, Regular rate/rhythm, No gallops, No rubs, No murmurs Gastrointestinal: Normal bowel sounds, Non-distended, Other (Brewster placed midline in abdominal region without signs of infection), Tenderness (Mildly tender in all abdominal quadrants.) Musculoskeletal: No swelling, No erythema, No tenderness, No warmth Neurological: Normal strength at 5/5 x4 extr, Sensation intact <Frias,Lila Q - Last Filed: 02/14/24 09:38> Assessment And Plan - Plan Abdominal pain: -Now on TPN -No fevers overnight -Abd XR revealed partial obstruction versus adynamic ileus -Continue with Dilaudid for pain management -Continue with remaining ajith in abdominal region at this time -Continue with Merrem Hyperkalemia: K 3.2 on morning labs-repleted Influenza A: -Continue with Tamiflu DVT:lovenox Code:full - Code Status/Comfort Care Code Status Assessed: Yes Code Status: Full Code <Frias,Lila Q - Last Filed: 02/14/24 09:38> - Plan Patient seen and examined. Plan of care discussed with Hugo . Patient reports less pain. Repeat KUB shows some improvement in bowel dilatation. Patient with significant hypokalemia. Case discussed with Dr. Edward. Continue medical treatment with antibiotics. Keep n.p.o. PPN Correct potassium IV. <cesar lopez - Last Filed: 02/15/24 16:19>
--- NOTE | 2024-02-14 08:52 | PN ---
Date of Progress Note: 02/14/2024 Subjective: The patient's flu test came back positive yesterday. The patient feels better this morn ing. No nausea, no vomiting. She had diarrhea couple of times. No abdominal pain. Objective: Vital Signs: Stable. Currently, she is afebrile. Abdomen: Soft, nondistended, nontender. Positive bowel sounds. Laboratory Data: Reviewed. She has hypokalemia which is being replaced. Imaging Data: X-ray reveals still a dilated small bowel, slightly improved. No free air. Assessment: Prolonged ileus likely. Recommendations: Continue TPN, antibiotics. We will keep her n.p.o. with ice chips for another day or 2 along the ileus to improve, then we will begin diet in 24 to 48 hours and advance slowly. She i s clinically improving slowly. /MODL Voice ID: [id number] Report ID: [id number]
[2024-02-14] MEDS: KCL 20 MEQ/100 mL IVPB 20 MEQ/100 ML BAG IV SCH (09:10)
[2024-02-14] MEDS: NA CHLORIDE 0.9% 250 ML ONE (10:05)
[2024-02-14] MEDS: AA 4.25 %/D5W/ELECTROLYTES 2,000 ML IV SCH (16:59)
[2024-02-15 04:24] LABS: Absolute Eosinophils 0.1 K/uL (0-0.5); Absolute Lymphocytes (CBC) 1.3 K/uL (0.7-4.9); Absolute Monocytes 0.1 K/uL (0.1-1.3); Absolute Neutrophil 0.7 K/uL (1.8-8.0); Basophils % 0.5 % (0-1.3); Eosinophils % 5.3 % (0-4.4); Hematocrit 35.4 % (36.0-45.0); MCH 29.9 pg (27.0-35.0); MCV 87.9 fL (80-100); MPV 7.1 fL (7.6-11.3); Monocytes % 5.5 % (3.3-12.3); Neutrophils % 31.7 % (41.7-73.7); Nucleated Red Blood Cells % 0.4 % (0-0); Platelets 248 thou/uL (152-406); RBC Red Blood Cell Count 4.02 M/uL (3.86-4.86); Red Cell Distribution Width 13.8 % (12.1-15.2)
[2024-02-15 04:27] LABS: Urine Bilirubin NEGATIVE (Negative); Urine Blood Negative (Negative); Urine Clarity Clear (Clear); Urine Color Colorless (Yellow); Urine Glucose NEGATIVE (Negative); Urine Ketones TRACE (Negative); Urine Microscopic Reflex YN NO UMIC; Urine Nitrite NEGATIVE (Negative); Urine Protein NEGATIVE (Negative); Urine Urobilinogen Normal (Normal); Urine pH 6.5 (5.0-7.0)
[2024-02-15 04:41] LABS: ALT/SGPT 170 U/L (13-56); AST/SGOT 67 U/L (15-37); Albumin 3.1 g/dL (3.4-5.0); Albumin/Globulin Ratio 0.8 (1.1-1.8); Alkaline Phosphatase 63 U/L (45-117); Anion Gap 5.8 mEq/L (5.0-15.0); BUN Blood Urea Nitrogen 9 mg/dL (7-18); Bicarbonate 30 mEq/L (21-32); Bilirubin Total 0.2 mg/dL (0.2-1.0); Globulin 3.8 g/dL (2.3-3.5); Glomerular Filtration Rate 115 ml/min (=/>90); Glucose Level 103 mg/dL (74-106); Magnesium 1.8 mg/dL (1.6-2.4); Phosphorus 2.7 mg/dL (2.5-4.9); Potassium 3.8 mEq/L (3.5-5.1); Protein, Total 6.9 g/dL (6.4-8.2); Sodium Level 138 mEq/L (136-145)
[2024-02-15 05:39] LABS: Bilirubin Direct < 0.2 mg/dL (0-0.2)
[2024-02-15 05:48] LABS: Blood Morphology Comment NOT SEEN (NOT SEEN); Platelet Estimate ADEQ; White Blood Cell Scan OK (OK)
[2024-02-15] MEDS: NA CHLORIDE 0.9% 250 ML ONE (08:39)
[2024-02-15] MEDS: KCL 20 MEQ/100 mL IVPB 20 MEQ/100 ML BAG IV SCH (08:39)
--- NOTE | 2024-02-15 08:52 | RAD REPORT ---
Exam:Abdomen W Erect Clinical history: Abdominal pain FINDINGS: Mild dilatation of several small bowel loops mostly unchanged. A few loops are minimally diminished i n caliber as well. Air within the colon is diminished. No free air seen. These findings could present a adynamic ileus or partial small bowel obstruction
--- NOTE | 2024-02-15 09:50 | P.PN ---
Date of Service: 02/15/24 Subjective: Mild improvement in pain Diarrhea x 2 overnight No other acute events Tolerating PPN ROS: 10 point ROS as noted above, otherwise negative Physical exam GEN: Alert, oriented, NAD HEENT: Normal conjunctiva, sclera anicteric CV: Regular rate and rhythm, no edema Pulm: Nonlabored respirations on room air ABD: Soft, mild generalized abdominal tenderness, nondistended, binder in place MSK: No joint tenderness Integumentary: No rashes Neuro: Normal speech, normal affect Vitals reviewed Problem List Recurrent SBO versus ileus S/P ex lap with lysis of adhesions on 02/03/2024 Transaminitis/elevated lipase Plan Recurrent SBO versus ileus S/P ex lap with lysis of adhesions on 02/03/2024 Abdominal x-ray today shows no significant changes Possible mild improvement in pain overnight Will try sips of clear liquids/ice chips today General Surgery following-okay to start Lovenox for DVT PPx Slowly advance diet as tolerated Repeat x-ray in the morning Transaminitis/elevated lipase LFTs improving MRCP without signs of biliary obstruction VTE: Lovenox Code: Full Dispo: 2 to 3 days Time Spent Managing Pts Care (In Minutes): 35 <Beka Garcia - Last Filed: 02/15/24 09:53> Patient seen and examined. Plan of care discussed with Beka Garcia. Patient's symptoms significantly improved. KUB result reviewed and noted significant improvement in bowel dilatation. Patient states she has flatus. Abdomen is less distended. Plan; Continue conservative measures with antibiotics, PPN. Serial abdominal examination. General surgery Dr. Edward to follow. Supportive measures as needed. <cesar lopez - Last Filed: 02/15/24 15:20>
[2024-02-15] MEDS: ENOXAPARIN 40 MG/0.4 ML SQ ONE (10:00)
[2024-02-16 05:14] LABS: MCH 30.4 pg (27.0-35.0); MCHC 34.2 g/dL (32.0-36.0); MCV 88.8 fL (80-100); MPV 7.4 fL (7.6-11.3); Platelets 245 thou/uL (152-406); RBC Red Blood Cell Count 3.94 M/uL (3.86-4.86); Red Cell Distribution Width 13.6 % (12.1-15.2)
[2024-02-16 05:39] LABS: Albumin 3.2 g/dL (3.4-5.0); Albumin/Globulin Ratio 0.8 (1.1-1.8); Anion Gap 7.7 mEq/L (5.0-15.0); Bilirubin Total 0.3 mg/dL (0.2-1.0); Potassium 3.7 mEq/L (3.5-5.1); Protein, Total 7.2 g/dL (6.4-8.2)
--- NOTE | 2024-02-16 07:16 | RAD REPORT ---
EXAM: Abdomen W Erect HISTORY: Eval bowel gas COMPARISON: 02/15/2024 FINDINGS: A loop of dilated small bowel is present centrally measuring approximately 4 cm but gas is present di stally within the small bowel. No evidence of a high-grade bowel obstruction. No air-fluid levels. Lung bases clear. No acute osseous abnormality. No significant/abnormal calcifications. Laparotomy changes. IMPRESSION: Single loop of dilated small bowel centrally but with small bowel gas distally. Findings are most consistent with a postoperative ileus.
--- NOTE | 2024-02-16 08:19 | P.PN ---
Date of Service: 02/16/24 Subjective: Mild improvement in pain Diarrhea x 1 overnight No other acute events Tolerating PPN Tolerating sips of water and ice chips ROS: 10 point ROS as noted above, otherwise negative Physical exam GEN: Alert, oriented, NAD HEENT: Normal conjunctiva, sclera anicteric CV: Regular rate and rhythm, no edema Pulm: Nonlabored respirations on room air ABD: Soft, mild generalized abdominal tenderness, nondistended, binder in place MSK: No joint tenderness Integumentary: No rashes Neuro: Normal speech, normal affect Vitals reviewed Problem List Recurrent SBO versus ileus S/P ex lap with lysis of adhesions on 02/03/2024 Transaminitis/elevated lipase Plan Recurrent SBO versus ileus S/P ex lap with lysis of adhesions on 02/03/2024 Abdominal x-ray today shows ileus Possible mild improvement in pain overnight Tolerated sips of clear liquids/ice chips yesterday Slowly advance diet as tolerated Transaminitis/elevated lipase LFTs improving MRCP without signs of biliary obstruction VTE: Lovenox Code: Full Dispo: 2 to 3 days Time Spent Managing Pts Care (In Minutes): 35
[2024-02-16] MEDS: ENOXAPARIN 40 MG/0.4 ML SQ SCH (08:20)
[2024-02-16] MEDS: MUCINEX DM 12HR.SR TAB PO PRN (08:21)
--- NOTE | 2024-02-16 14:12 | PN ---
Date of Progress Note: 02/16/2024 Subjective: The patient is awake, alert. No nausea or vomiting. Had 1 episode of diarrhea, is pass ing gas. Objective: Vital Signs: Stable. Afebrile Laboratory Data: Abdomen x-ray shows only 1 loop of bowel that is dilated. There is air beyond that point. Assessment: Prolonged ileus. Recommendations: Continue TPN. Encourage ambulation. We will start the patient on clear liquids. The patient is slowly improving. /MODL Voice ID: [id number] Report ID: [id number]
[2024-02-16] MEDS: POTASSIUM CL SA 10 MEQ TAB PO ONE (16:13)
[2024-02-17 06:17] LABS: Hematocrit 34.4 % (36.0-45.0); Hemoglobin 11.8 g/dL (12.0-15.0); MCH 30.1 pg (27.0-35.0); MCHC 34.3 g/dL (32.0-36.0); MCV 87.6 fL (80-100); MPV 7.5 fL (7.6-11.3); Platelets 256 thou/uL (152-406); RBC Red Blood Cell Count 3.93 M/uL (3.86-4.86); Red Cell Distribution Width 13.6 % (12.1-15.2)
[2024-02-17 06:29] LABS: Albumin 3.2 g/dL (3.4-5.0); Albumin/Globulin Ratio 0.8 (1.1-1.8); Bilirubin Total 0.3 mg/dL (0.2-1.0); Protein, Total 7.2 g/dL (6.4-8.2)
--- NOTE | 2024-02-17 07:42 | RAD REPORT ---
EXAM: XR of the abdomen HISTORY: Abdominal pain Follow-up ileus COMPARISON: 02/16/2024 FINDINGS: XR of the abdomen shows a gaseous distention of large and small bowel loops. A few central small bowel loops which are prominent appear similar to prior study.. Findings would be most compatible with mild improvement in adynamic ileus. No suspicious calcifications are seen. The bone s are unremarkable. Midline skin ajith. IMPRESSION: Mild improvement in diffuse adynamic ileus.
--- NOTE | 2024-02-17 08:47 | P.PN ---
Date of Service: 02/17/24 Subjective: Mild improvement in pain No BM overnight/diarrhea No other acute events overnight Tolerating PPN and clear liquids Advance to full liquids today ROS: 10 point ROS as noted above, otherwise negative Physical exam GEN: Alert, oriented, NAD HEENT: Normal conjunctiva, sclera anicteric CV: Regular rate and rhythm, no edema Pulm: Nonlabored respirations on room air ABD: Soft, mild generalized abdominal tenderness, nondistended, binder in place MSK: No joint tenderness Integumentary: No rashes Neuro: Normal speech, normal affect Vitals reviewed Problem List Recurrent SBO versus ileus S/P ex lap with lysis of adhesions on 02/03/2024 Transaminitis/elevated lipase Plan Recurrent SBO versus ileus S/P ex lap with lysis of adhesions on 02/03/2024 Abdominal x-ray shows mild improvement in ileus Slow but steady improvement Tolerated sips of clear liquids Advance to full liquids today General Surgery following Labs stable Transaminitis/elevated lipase LFTs improving MRCP without signs of biliary obstruction VTE: Lovenox Code: Full Dispo: 1-2 days Time Spent Managing Pts Care (In Minutes): 35
--- NOTE | 2024-02-17 10:34 | PN ---
Date of Progress Note: 02/17/2024 Subjective: Patient is awake, alert. No pain. No complaint. No nausea or vomiting. Tolerating he r clear liquids. Objective: Vital Signs: Stable. She is afebrile. Abdomen: Soft, nondistended, nontender. Positive bowel sounds. Laboratory Data: Reviewed, essentially unchanged. Abdominal x-ray, this morning, shows improvement in the adynamic ileus. Assessment: Prolonged ileus following exploratory laparotomy for small bowel obstruction. Recommendations: Advance diet to full liquids. Decrease TPN and taper off. The patient is clinical ly improving. Likely discharge in 24 hours. /MODL Voice ID: [id number] Report ID: [id number]
[2024-02-18 04:53] LABS: Hematocrit 35.5 % (36.0-45.0); Hemoglobin 12.2 g/dL (12.0-15.0); MCHC 34.3 g/dL (32.0-36.0); MCV 87.5 fL (80-100); MPV 7.7 fL (7.6-11.3); Platelets 289 thou/uL (152-406); RBC Red Blood Cell Count 4.05 M/uL (3.86-4.86); Red Cell Distribution Width 13.5 % (12.1-15.2)
[2024-02-18 05:21] LABS: Albumin 3.2 g/dL (3.4-5.0); Albumin/Globulin Ratio 0.8 (1.1-1.8); Anion Gap 7.7 mEq/L (5.0-15.0); Bilirubin Total 0.3 mg/dL (0.2-1.0); Globulin 4.1 g/dL (2.3-3.5); Potassium 3.7 mEq/L (3.5-5.1); Protein, Total 7.3 g/dL (6.4-8.2)
[2024-02-18] MEDS: POTASSIUM 25 MEQ EFFERV TAB PO ONE (08:30)
--- NOTE | 2024-02-18 09:26 | PN ---
Date of Progress Note: 02/18/2024 Subjective: The patient is awake, alert, tolerating diet, ambulating. Pain is controlled with p.o. pain medication. No nausea or vomiting. Objective: Vital Signs: Stable. Afebrile. Abdomen: Benign. Assessment: Status post exploratory laparotomy, lysis of adhesions for small bowel obstruction with prolonged ileus, improved. Recommendations: The patient is cleared from surgery for discharge. Discharge instructions given. The patient will follow up with me in a week. /MODL Voice ID: [id number] Report ID: [id number]
[2024-02-18 12:46] VITALS: BP 105/65; TEMP 98
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
== END 2024-02-18 12:55 | disposition home or self-care (01) | DRG 388 ==
LOC: ER 18:32 → ERHOLD 02-12 01:03 → 2ND 02-12 14:58
PROVIDERS: ADMIT Internal Medicine; ATTEND Hospitalist
PROC: 3E0336Z Introduction of Nutritional Substance into Peripheral Vein, Percutaneous Approach (ICD-10-PCS; principal; 2024-02-13)
PROC: 05HC33Z Insertion of Infusion Device into Left Basilic Vein, Percutaneous Approach (ICD-10-PCS; 2024-02-13)
DX: K56.699 Other intestinal obstruction unspecified as to partial versus complete obstruction (principal); K85.90 Acute pancreatitis without necrosis or infection, unspecified; E87.6 Hypokalemia; E87.5 Hyperkalemia; D70.9 Neutropenia, unspecified; K80.20 Calculus of gallbladder without cholecystitis without obstruction; J10.1 Influenza due to other identified influenza virus with other respiratory manifestations; F17.200 Nicotine dependence, unspecified, uncomplicated; R74.01 Elevation of levels of liver transaminase levels; R79.89 Other specified abnormal findings of blood chemistry; Z71.6 Tobacco abuse counseling; Z88.1 Allergy status to other antibiotic agents; Z98.51 Tubal ligation status; Z91.011 Allergy to milk products; Z79.899 Other long term (current) drug therapy
CPT/HCPCS: 36415; 74019; 74177; 74181; 74250; 76705; 80048; 80053; 80076; 81001; 81003; 82248; 83690; 83735; 84100; 84132; 85025; 85027; 87040; 87070; 87081; 87804; 87811; 96361; 96365; 96367; 96375; 99285; J0744; J1171; J1650; J2185; J2405; J3480; J7030; J7050; Q9967

== ENCOUNTER 2024-02-23 10:01 | Emergency (ER) | payer SELFPAY ==
[2024-02-23 10:43] LABS: Absolute Eosinophils 0.1 K/uL (0-0.5); Absolute Lymphocytes (CBC) 1.5 K/uL (0.7-4.9); Absolute Monocytes 0.4 K/uL (0.1-1.3); Absolute Neutrophil 2.7 K/uL (1.8-8.0); Basophils % 0.8 % (0-1.3); Eosinophils % 1.9 % (0-4.4); Hematocrit 35.4 % (36.0-45.0); Lymphocytes % 32.1 % (15.3-44.8); MCH 29.6 pg (27.0-35.0); MCHC 33.8 g/dL (32.0-36.0); MCV 87.5 fL (80-100); MPV 7.6 fL (7.6-11.3); Monocytes % 9.1 % (3.3-12.3); Neutrophils % 56.1 % (41.7-73.7); Nucleated Red Blood Cells % 0.2 % (0-0); Platelets 419 thou/uL (152-406); RBC Red Blood Cell Count 4.05 M/uL (3.86-4.86); Red Cell Distribution Width 13.6 % (12.1-15.2)
[2024-02-23 11:00] LABS: Anion Gap 7.9 mEq/L (5.0-15.0); Magnesium 1.8 mg/dL (1.6-2.4); Potassium 3.9 mEq/L (3.5-5.1); Troponin High Sensitivity 4.8 pg/mL (<58.9)
--- NOTE | 2024-02-23 11:52 | ER ---
Nurse's Notes [facility] Name: Steffany Arreola Age: 49 yrs Sex: Female : 1975 Arrival Date: 02/23/2024 Time: 10:01 Bed 3 Private MD: Diagnosis: Cough;Acute bronchitis, unspecified;Palpitations;Chest pain, unspecified Presentation: 02/22 10:04 Chief complaint: Patient states: she had brief chest pain/pressure that was coming in ap3 waves prior to her arrival. patient states she drank some gatoraid which seems to have helped it. Coronavirus screen: At this time, the client does not indicate any symptoms associated with coronavirus-19. Ebola Screen: No symptoms or risks identified at this time. Initial Sepsis Screen: Does the patient meet any 2 criteria? No. Patient's initial sepsis screen is negative. Does the patient have a suspected source of infection? No. Patient's initial sepsis screen is negative. Risk Assessment: Do you want to hurt yourself or someone else? Patient reports no desire to harm self or others. Onset of symptoms was February 23, 2024. 10:04 Method Of Arrival: EMS: [facility] ap3 10:04 Acuity: JAMSHID 3 ap3 10:04 Care prior to arrival: IV initiated. 20 GA, in the left antecubital area. ap3 Triage Assessment: 10:07 General: Appears in no apparent distress. Behavior is calm, cooperative, appropriate ap3 for age. Pain: Complains of pain in chest Quality of pain is described as pressure. Neuro: Level of Consciousness is awake, alert, obeys commands, Oriented to person, place, time, situation. Cardiovascular: Patient's skin is warm and dry. Respiratory: Airway is patent Respiratory effort is even, unlabored, Respiratory pattern is regular, symmetrical. Derm: surgical scaring on abdomen. Historical: - Allergies: 10:07 Bactrim; ap3 10:07 Milk Containing Products; ap3 - PMHx: 10:07 bowel obstruction (tubal ligation x 2); ap3 - PSHx: 10:07 chest tube; Tonsillectomy; tubal ligation x 2; ap3 - Immunization history:: Adult Immunizations up to date. - Infectious Disease History:: Denies. - Social history:: Smoking status: Patient/guardian denies using tobacco. Screenin:08 [facility] ED Fall Risk Assessment (Adult) History of falling in the last 3 months, ap3 including since admission No falls in past 3 months (0 pts) Confusion or Disorientation No (0 pts) Intoxicated or Sedated No (0 pts) Impaired Gait No (0 pts) Mobility Assist Device Used No (0 pt) Altered Elimination No (0 pt) Score/Fall Risk Level 0 - 2 = Low Risk Oriented to surroundings, Maintained a safe environment, Educated pt \T\ family on fall prevention, incl call for assistance when getting out of bed, Assessed \T\ reinforced patient's understanding of fall precautions, Hourly rounding (assess needs \T\ fall precautionary measures) done, Used ambulatory aids as needed (educated on \T\ assisted with), Used gait belt as appropriate. Abuse screen: Denies threats or abuse. Nutritional screening: No deficits noted. Tuberculosis screening: No symptoms or risk factors identified. Vital Signs: 10:04 BP 104 / 67; Pulse 74; Resp 18; Temp 98.4; Pulse Ox 100% on R/A; Weight 73.48 kg; ap3 11:47 BP 107 / 77; Pulse 63; Pulse Ox 100% on R/A; ap3 12:12 BP 118 / 82; Pulse 65; Resp 16; Pulse Ox 99% ; ko1 ED Course: 10:04 Patient arrived in ED. ap3 10:04 Adam Perdomo MD is Attending Physician. bo1 10:06 Triage completed. ap3 10:08 Arm band placed on right wrist. ap3 10:08 Patient has correct armband on for positive identification. Bed in low position. Call ap3 light in reach. Side rails up X2. Provided Education on: fall risk education. Client placed on continuous cardiac and pulse oximetry monitoring. NIBP monitoring applied. personnel monitor on. Pulse ox on. NIBP on. 10:47 Yris Miranda, BASHIR is Primary Nurse. ap3 10:47 Initial lab(s) drawn, by me, sent to lab. ap3 10:49 EKG done, by ED staff, reviewed by Adam Perdomo MD. am7 11:54 Jef Romero MD is Referral Physician. bo1 11:55 Chest Pa And Lat (2 Views) XRAY In Process Unspecified. EDMS 12:12 Door closed. Noise minimized. Lights dimmed. Pillow given. ko1 12:12 No provider procedures requiring assistance completed. ko1 12:24 IV discontinued, intact, bleeding controlled, No redness/swelling at site. Pressure ko1 dressing applied. Administered Medications: No medications were administered Medication: 12:02 VIS not applicable for this client. ko1 Outcome: 11:51 Discharge ordered by . bo1 12:24 Discharged to home ambulatory, ko1 12:24 Condition: stable 12:24 Discharge instructions given to patient, Instructed on discharge instructions, follow up and referral plans. medication usage, Demonstrated understanding of instructions, follow-up care, medications, Prescriptions given X 2, 12:25 Patient left the ED. ko1 Signatures: Dispatcher [employer] EDYris Rosa RN RN [id number] Radha Huerta RN RN ko1 Adam Perdomo MD MD bo1 Naila Swanson am7
--- NOTE | 2024-02-23 11:52 | EDPHYS ---
Physician Documentation [facility] Name: Steffany Arreola Age: 49 yrs Sex: Female : 1975 Arrival Date: 02/23/2024 Time: 10:01 Bed 3 Private MD: ED Physician Adam Perdomo HPI: 02/22 11:42 This 49 yrs old Female presents to ER via EMS with complaints of Chest Pain. bo1 11:42 The patient or guardian reports chest pain that is located primarily in the substernal bo1 area, Palpitations. Onset: suddenly, this morning, After half cup of coffee and watching TV on couch. The pain does not radiate. Associated signs and symptoms: Pertinent negatives: abdominal pain, Recent surgery for bowel issues - adhesions lysed. Steri-strips still on the abd. The chest pain is described as sharp. Duration: The patient or guardian reports multiple episodes, that have now resolved, the episodes last approximately 1 minute(s), Less than 1 min, 30-40 secs X 5 episodes. Pt has also been coughing after the surgery - brown sputum episodically. Historical: - Allergies: 10:07 Bactrim; ap3 10:07 Milk Containing Products; ap3 - PMHx: 10:07 bowel obstruction (tubal ligation x 2); ap3 - PSHx: 10:07 chest tube; Tonsillectomy; tubal ligation x 2; ap3 - Immunization history:: Adult Immunizations up to date. - Infectious Disease History:: Denies. - Social history:: Smoking status: Patient/guardian denies using tobacco. ROS: 11:45 Constitutional: Negative for fever, chills, and weight loss bo1 11:45 Cardiovascular: Positive for chest pain, palpitations, 11:45 Respiratory: Positive for cough, Sputum, dark and non-bloody, Negative for shortness of breath, 11:45 Abdomen/GI: Negative for abdominal pain, nausea and vomiting, 11:45 Skin: Negative for rash, 11:45 All other systems are negative, Exam: 11:46 Constitutional: This is a well developed, well nourished patient who is awake, alert, bo1 and in no acute distress. 11:46 Constitutional: The patient appears in no acute distress, alert, awake, comfortable, non-toxic, 11:46 Eyes: Exam is negative for Sclera: no acute changes, icterus, is not appreciated, 11:46 Neck: External neck: is normal, Lymph nodes: no appreciated lymphadenopathy, 11:46 Cardiovascular: Rate: normal, Rhythm: regular, Pulses: no pulse deficits are appreciated, 11:46 ECG was reviewed by the Attending Physician. 11:46 Respiratory: Exam negative for acute changes, the patient does not display signs of respiratory distress, Respirations: normal, Breath sounds: are clear throughout, Respiratory rate: Normal 11:46 Abdomen/GI: Midline scar with steri strips in place, 11:46 Musculoskeletal/extremity: DVT Exam: no pain, no swelling, no tenderness, 11:46 Skin: Warm and dry. 11:46 Neuro: Exam negative for 11:46 Psych: Exam negative for Vital Signs: 10:04 BP 104 / 67; Pulse 74; Resp 18; Temp 98.4; Pulse Ox 100% on R/A; Weight 73.48 kg; ap3 11:47 BP 107 / 77; Pulse 63; Pulse Ox 100% on R/A; ap3 12:12 BP 118 / 82; Pulse 65; Resp 16; Pulse Ox 99% ; ko1 MDM: 10:04 Medical Screening Exam initiated bo1 11:49 Differential diagnosis: anxiety, coronary artery disease chest wall pain, bo1 Bronchitis/pneumonia/reactive airway disease. Data reviewed: vital signs, lab test result(s), EKG, radiologic studies, plain films. ED course: Plan to refer for Holter monitor and treat the cough/bronchitis sxs post surgery. Pt appears to have some family hx of RAD/bronchitis. 02/22 10:26 Order name: Basic Metabolic Panel; Complete Time: 11:04 bo02/22 10:26 Order name: CBC with Diff; Complete Time: 11:04 02/22 10:26 Order name: D-Dimer; Complete Time: 11:04 02/22 10:26 Order name: Magnesium; Complete Time: 11:02/22 10:26 Order name: Troponin HS; Complete Time: 11:04 02/22 10:26 Order name: Chest Pa And Lat (2 Views) XRAY; Complete Time: 12:01 02/22 10:26 Order name: Cardiac monitoring; Complete Time: 10: bo02/22 10:26 Order name: EKG - Nurse/Tech; Complete Time: 10:48 bo1 02/22 10:26 Order name: IV Saline Lock; Complete Time: 10:48 bo1 02/22 10:26 Order name: Labs collected and sent; Complete Time: 10:48 bo1 02/22 10:26 Order name: O2 Per Protocol; Complete Time: 10:27 bo1 02/22 10:26 Order name: O2 Sat Monitoring; Complete Time: 10:27 bo1 EC:46 Rate is 65 beats/min. Rhythm is regular. QRS [place] is Normal. MS interval is normal. QRS bo1 interval is normal. QT interval is normal. No Q waves. T waves are Normal. No ST changes noted. Clinical impression: Normal ECG. Interpreted by me. Reviewed by me. Administered Medications: No medications were administered Disposition Summary: 02/23/24 11:51 Discharge Ordered Notes: Location: Home bo1 Problem: new bo1 Symptoms: are unchanged bo1 Condition: Stable bo1 Diagnosis - Cough bo1 - Acute bronchitis, unspecified bo1 - Palpitations bo1 - Chest pain, unspecified bo1 Followup: bo1 - With: Private Physician - When: Upon discharge from the Emergency Department - Reason: Recheck today's complaints, Continuance of care Followup: bo1 - With: Jef Romero MD - When: Upon discharge from the Emergency Department - Reason: Recheck today's complaints, Continuance of care Discharge Instructions: - Discharge Summary Sheet bo1 - Acute Bronchitis, Adult bo1 - Nonspecific Chest Pain, Adult bo1 - Cough, Adult bo1 Forms: - Medication Reconciliation Form bo1 - Antibiotic Education bo1 - Prescription Opioid Use bo1 - Patient Portal Instructions bo1 - Leadership Thank You Letter bo1 Prescriptions: - azithromycin 500 mg Oral tablet - take 1 tablet ORAL route daily for 10 days; 10 tablet; Refills: 0, Product bo1 Selection Permitted - Tessalon Perles 100 mg Oral capsule - take 1 capsule ORAL route every 8 hours As needed Sub for 200mg perles; 40 bo1 capsule; Refills: 0, Product Selection Permitted Signatures: Dispatcher [employer] [facility] Yris Miranda RN RN ap3 Adam Perdomo MD MD bo1 Corrections: (The following items were deleted from the chart) 10:27 10:27 BASIC METABOLIC PANEL+C.LAB.BRZ ordered. EDMS EDMS 10:27 10:27 CBC+H.LAB.BRZ ordered. EDMS EDMS 10:27 10:27 D-DIMER+COAG.LAB.BRZ ordered. EDMS EDMS 10: 10:27 MAGNESIUM+C.LAB.BRZ ordered. EDMS EDMS 10: 10:27 Troponin High Sensitivity+C.LAB.BRZ ordered. EDMS EDMS 10:27 10:27 Chest Pa And Lat (2 Views)+RAD.RAD.BRZ ordered. EDMS EDMS
--- NOTE | 2024-02-23 11:58 | RAD REPORT ---
EXAMINATION: TWO VIEW CHEST XR CLINICAL INDICATION: Female, 49 years old. [facility]ST[facility] Bed Name: 3 TECHNIQUE: 2 view radiographs of the chest were performed. COMPARISON: 02/17/2024 through 02/14/2024. FINDINGS: The lungs are hyperexpanded suggesting COPD. No pneumothorax or sizable effusion. The heart is normal in size. Mediastinal contours are unremarkable. Some posterior left rib deformities, not well appreciated on prior exams, suggest sequelae of remote trauma or healed fractures. IMPRESSION: No acute or significant abnormalities.
[2024-02-23 12:30] VITALS: TEMP 98.4
[2024-02-23 12:32] VITALS: BP 118/82; O2SAT 99
--- NOTE | 2024-02-24 14:41 | EKG ---
Test Date: 2024-02-23 Test Time: 10:45:30 [employer] Builder: ALP MEASUREMENT RESULTS: Intervals: Rate: 65 [place]: 140 QRSD: 90 QT: 418 QTc: 434 [place]: P: 63 [place]: 140 QRS: 73 T: 79 INTERPRETIVE STATEMENTS: Normal sinus rhythm Normal ECG No previous ECG available for comparison Electronically Signed On 02-24-24 14:39:16 [employer]AG [employer] by Jef Romero
== END 2024-02-23 12:25 | disposition home or self-care (01) ==
LOC: ER 10:01
DX: J20.9 Acute bronchitis, unspecified (principal); R00.2 Palpitations; R05.9 Cough, unspecified
CPT/HCPCS: 36415; 71046; 80048; 83735; 84484; 85025; 85379; 93005; 99284